=== PATIENT | female | born 2005 | race Caucasian/White ===

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

== ENCOUNTER 2023-09-10 22:03 | Emergency (ER) | payer OTHER, SELFPAY ==
--- NOTE | ~2023-09-10 | XR_ITS ---
Supine and upright views of the abdomen Clinical history: Foreign body Findings: Bowel gas pattern is nonspecific. No evidence for obstruction or free air. No abnormal mass lesion or calcification is seen. Linear density projecting over the left iliac wing on a single imag e is probably artifactual/external to the patient. Osseous structures are intact. Impression: Linear density projecting over the left iliac wing on a single image is likely artifactual/external t o the patient. No definite foreign body seen. Reviewed, dictated and finalized at location M. Impression: Linear density projecting over the left iliac wing on a single image is likely artifactual/external to the patient. No definite foreign body seen.
[2023-09-10 22:03] VITALS: BP 128/88; PULSE 84; RESP 20; TEMP 36.5; O2SAT 98
--- NOTE | 2023-09-10 22:09 | ED.SKABFB ---
HPI - Skin/Abscess/Foreign Bdy General Chief complaint: Skin/Abscess/Foreign Body Stated complaint: Insulin needle stuck in abdomen Time Seen by Provider: 09/10/23 22:08 Source: patient Mode of arrival: ambulatory Limitations: no limitations History of Present Illness HPI narrative: 18-year-old female with diabetes mellitus on insulin presents to the ED with -- insulin needle stuck to her anterior abdominal wall. She complains of pain. She used the 27 gauge needle which appears to have broken off. Onset (ago): minute(s) ( 30 minutes ago) Tetanus up to date: yes Related Data Home Medications Medication Instructions Recorded Confirmed cholecalciferol (vitamin D3) 25 10/27/22 10/27/22 mcg (1,000 unit) tablet insulin lispro 100 unit/mL subcut 10/27/22 subcutaneous pen (Humalog KwikPen (U-100) Insulin) levonorgestrel-ethinyl estradiol tablet 10/27/22 0.1 mg-20 mcg tablet (Lessina) azithromycin 500 mg tablet mg 12/27/22 Allergies Allergy/AdvReac Type Severity Reaction Status Date / Time Penicillins Allergy Unknown Verified 12/27/22 10:37 Review of Systems Review of Systems: All systems reviewed & are unremarkable except as noted in HPI and below Exam Narrative: vitals are stable Const: General: healthy appearing and no acute distress Nutritional Appearance: well nourished Orientation/consciousness: patient oriented x3 Limitations: no limitations HENMT: Head: normal to inspection Ears: external ears normal Face/Nose/Sinus: Normal external nose present Face and sinus: normal facial exam Mouth: Yes Normal oral and palatal mucosa present Throat: posterior oropharynx normal Eyes: Conjunctivae: conjunctivae normal Pupils: Equal, round and reactive pupils present EOM: EOMs intact bilaterally Direct Ophthalmoscopy: no photophobia Neck: Neck: normal visual inspection and no lymphadenopathy Chest: Chest palpation & inspection: normal inspection of the chest Resp: Effort & Inspection: normal respiratory effort Auscultation: clear to auscultation bilaterally Cardio: Rate: regular rate Rhythm: regular rhythm GI: GI Palp: Yes Soft to palpation Auscultation: normal bowel sounds Other: erythematous spot measuring 2 mm on the anterior abdominal wall. Unable to locate broken needle after making a 0.5 cm incision. X-ray failed to reveal a foreign body. : General: Yes no CVA tenderness Back/Spine/Pelvis: Back: no CVA tenderness Skin: General skin exam: normal color Rashes: no rashes Wounds: no wounds Other: Foreign body in anterior abdominal wall Neuro: General: patient oriented x3, moves all extremities, no meningeal signs, no focal motor deficits and CN's II-XI intact bilaterally Speech: normal speech Extrem: General: normal to inspection and no clubbing, cyanosis or edema Psych: Mental Status: mental status grossly normal Affect: normal affect Course Course Emergency Course: foreign body anterior abdominal wall unable to locate the foreign body after 0.5 cm incision Vital Signs Vital signs: Vital Signs Temperature 36.5 C 09/10/23 22:03 Pulse Rate 84 09/10/23 22:03 Respiratory Rate 20 09/10/23 22:03 Blood Pressure 128/88 09/10/23 22:03 Pulse Oximetry 98 09/10/23 22:03 Oxygen Delivery Room Air 09/10/23 22:03 Temperature 36.5 C 09/10/23 22:03 Pulse Rate 84 09/10/23 22:03 Respiratory Rate 20 09/10/23 22:03 Blood Pressure 128/88 09/10/23 22:03 Pulse Oximetry 98 09/10/23 22:03 Oxygen Delivery Room Air 09/10/23 22:03 Procedures Foreign Body Removal Foreign Body #1: Foreign Body Removal Date: 09/10/23 Foreign Body Removal Time: 22:42 Site: other ( anterior abdominal wall) Description of foreign body: needle ( 27 gauge needle in the anterior abdominal wall) Sedation/Analgesia: other ( 1% lidocaine infiltrated-- 2 mL used) Technique: incision made to facilitate sourav
[2023-09-10] MEDS: LIDOCAINE HCL 1% LOCAL INJ 10 ML VIAL 3 ML INFILTRATE (22:17)
[2023-09-10 23:10] VITALS: BP 126/75; PULSE 78; RESP 20; O2SAT 98
== END 2023-09-10 23:10 | disposition home or self-care (01) ==
PROVIDERS: Emergency Provider Internal Medicine Critical Care Medicine; PCP Family Medicine
DX: S31.149A Puncture wound of abdominal wall with foreign body, unspecified quadrant without penetration into peritoneal cavity, initial encounter (principal); W45.8XXA Other foreign body or object entering through skin, initial encounter
CPT/HCPCS: 10120; 74018; 99283

== ENCOUNTER 2024-09-19 19:16 | Emergency (ER) | payer OTHER, SELFPAY ==
--- NOTE | ~2024-09-19 | XR_ITS ---
EXAMINATION: XR chest 1V portable Exam Date/Time: 09/19/2024 21:10 CDT HISTORY: DIZZY Comparison: 09/30/2023. RESULT: Lines, tubes, and devices: None. Lungs and pleura: Exam limited by body habitus. Low volumes with mild crowding. No focal consolidatio n, pleural effusion, or pneumothorax. Cardiomediastinal silhouette: Stable. Other: No acute osseous or upper abdominal finding. IMPRESSION: No acute cardiopulmonary process. Reviewed, dictated and finalized at location K.
--- OUTSIDE RECORDS SUMMARY | 2024-09-19 19:19 | XMS_ITS | Encounter Summary ---
Author Organization [facility] Address [address] [place] [address] Care Team Providers Care Food Selector Name Role Phone Unknown, Provider Primary Care Provider Unavaila ble Reason for Visit * Reason Onset Date Comments MEDICATION REFILL 08/14/2013 Encounter Details Date Type Department Care Team (Late st Contact Info) Description 08/14/[address] 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
--- OUTSIDE RECORDS SUMMARY | 2024-09-19 19:19 | XMS_ITS | Encounter Summary ---
Author Organization [facility] Address [address] [facility] [place] [address] Care Team Providers Care Superintendent Track Name Role Phone Arron Lucio MD Primary Care Provider [phone]- [phone] Unknown, Provider Primary Care Provider Unavaila ble Unknown, Provider Primary Care Provider Unavaila ble Reason for Visit * Reason Onset Date Comments MEDICATION REFILL 07/04/2012 Encounter Details Date Type Department Care Team (Late st Contact Info) Description 07/04/2012 Refill [facility] Pediatrics - Endocrinology [address] [place] [address] Jaime Crespo, BENDER HELPER-SURVEY RESEARCH MANAGER [address] [place] [address] MEDICATION REFILL Social History Tobacco Use Types Packs/Day Years Used Date Smoking Tobacco: Passive Smo ke Exposure - Never Smoker Smokeless Tobacco: Never Alcohol Use Standard Drinks/Week Comments No 0 (1 standard drink = 0.6 oz pur e alcohol) Comments Unknown Sex and Gender Information Value Date Recorded Sex Assigned at Not on file Legal 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 I attempted to reach mom several times, fast busy signal with each attempt. documented in this encounter Plan of Treatment Not on file documented as of this encounter Visit Diagnoses Diagnosis Type I (juvenile type) diabetes mellitus without mention of complication, not stated as uncontrolled (HCC) Type I (juvenile type) diabetes mellitus without mention of complication, not stated as uncontrolled documented in this encounter Care Teams Superintendent Track Relationship Specialty Start Date End Date Arron Lucio MD [address] [place] [address] PCP - General 06/04/09 02/20/13 Unknown, Provider [address] [place] [address] PCP - General 02/21/13 06/26/13 Unknown, Provider [address] [place] [address] PCP - General 08/14/13 08/15/13 documented as of this encounter
--- OUTSIDE RECORDS SUMMARY | 2024-09-19 19:19 | XMS_ITS | Encounter Summary ---
Author Organization [facility] Address [address] [facility] [place] [address] Care Team Providers Care Pantomimist Name Role Phone Unavailable Primary Care Provider Unavailabl e Encounter Details Date Type Department Care Team (Late st Contact Info) Description 11/05/2021 Telephone [facility] Pediatrics - Diabetes [address] 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 Okay to put through referral as long asOhara is in agreement (due to age 16 years). I attempted to call mom to ask to speak to Nish or ask for her number. No answer. LMOM to call back next week. If mom (or Nish) return my call while out of office, please confirm WITH NISH that she would likethe referral placed. If so, okay to proceed with referral or route message for me to place referralon Tuesday when I am back in the office. * Telephone Encounter - Marco Urbina - 11/05/2021 12:06 PM CDT Mom called wishing for a referral to be put in for Nish to see a bariatric surgeon. Physician is Dr. Jaime Armando out of [facility]. Office number is [phone]. Fax number is [phone]. Will route to Dr. Espinosa documented in this encounter Plan of Treatment Not on file documented as of this encounter Visit Diagnoses Not on filedocumented in this encounter
--- OUTSIDE RECORDS SUMMARY | 2024-09-19 19:19 | XMS_ITS | Encounter Summary ---
Author Organization [facility] Address [address] [facility] [place] [address] Care Team Providers Care Artificial Pearl Maker Name Role Phone Arron Lucio MD Primary Care Provider [phone]- [phone] Unknown, Provider Primary Care Provider Unavaila ble Unknown, Provider Primary Care Provider Unavaila ble Reason for Visit * Reason Onset Date Comments Refill Request 02/03/2011 Needs humalog vi als, lantus (just in case), test strips, lancets, glucagon , ketone strips. She said she needs refills on everything. nivio [phone] Encounter Details Date Type Department Care Team (Late st Contact Info) Description 02/03/2011 Telephone [facility] Pediatrics - Endocrinology [address] [place] [address] Jaime Crespo, FOUNDRY WORKER GENERAL-AGRICULTURAL REAL ESTATE AGENT [address] [place] [id number] Refill Request (Needs humalog vials, lantus (just in case), test strips, lancets, glucagon , ketone strips. She said she needs refills on everything. 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
--- OUTSIDE RECORDS SUMMARY | 2024-09-19 19:19 | XMS_ITS | Encounter Summary ---
Author Organization [facility] Address [address] [place] [address] Care Team Providers Care Incinerator Plant Laborer Name Role Phone Arron Lucio MD Primary Care Provider [phone]- [phone] Unknown, Provider Primary Care Provider Unavaila ble Unknown, Provider Primary Care Provider Unavaila ble Reason for Visit * Reason Onset Date Comments Refill Request 06/27/2009 ketostrips, free style lite test strips #200, teest 5- 9x qd Encounter Details Date Type Department Care Team (Late st Contact Info) Description 06/27/2009 Telephone [facility] Pediatrics - Diabetes [address] [address] Rosalba Penaloza MD Refill Request (ketostrips, freestyle lite test strips #200, teest 5-9x qd) Social History Tobacco Use Types Packs/Day Years Used Date Smoking Tobacco: Never Assessed Comments Unknown Sex and Gender Information Value Date Recorded Sex Assigned at Not on file Legal Sex Female 5:44 AM ROSE GRADER Gender Identity Not on file Sexual Orientation Not on file documented as of this encounter Plan of Treatment Not on file documented as of this encounter Visit Diagnoses Not on filedocumented in this encounter Care Teams Incinerator Plant Laborer Relationship Specialty Start Date End Date Arron Lucio MD [address] [place] [id number] PCP - General 06/04/09 02/20/13 Unknown, Provider [address] [place] [address] PCP - General 02/21/13 06/26/13 Unknown, Provider [address] [place] [address] PCP - General 08/14/13 08/15/13 documented as of this encounter
--- OUTSIDE RECORDS SUMMARY | 2024-09-19 19:19 | XMS_ITS | Encounter Summary ---
Author Organization [facility] Address [address] [place] [address] Care Team Providers Care Warehouse Hand Name Role Phone Unavailable Primary Care Provider Unavailabl e Reason for Visit * Reason Onset Date Comments Blood Sugar Problem 11/26/2014 Encounter Details Date Type Department Care Team (Late st Contact Info) Description 11/26/2014 Telephone [facility] Pediatrics - Diabetes [address] [address] Kiana Villela, MEDICAL ARTIST-ROAD MAKER Retired Blood Sugar Problem Social History Tobacco Use Types Packs/Day Years Used Date Smoking Tobacco: Passive Smo ke Exposure - Never Smoker Smokeless Tobacco: Never Alcohol Use Standard Drinks/Week Comments No 0 (1 standard drink = 0.6 oz pur e alcohol) Comments No Sex and Gender Information Value Date Recorded Sex Assigned at Not on file Legal Sex Female 5:44 AM FISHER POT Gender Identity Not on file Sexual Orientation Not on file documented as of this encounter Miscellaneous Notes * Telephone Encounter - Ludwin Curran RN - 11/26/2014 8:54 AM CDT Diabetes Sick Call Patient: Nish Machado Date: 11/26/2014 Mom called board of education secretary line and I was given message at 0845. Current Blood Glucose: 509 when she woke up earlier (not sure what time). Current Ketone result: large Last insulin given: Humalog: Dose 15 units Humalog with an injection at 0845. Site was changed. Symptoms: nausea, no vomiting. Recent Illness: ear infection last week, on antibiotics, Plan: Less than or equal to 10% of total daily dose. Push sugar free fluid. Recheck blood glucose and urine ketones in two hours. Miscellaneous: Reviewed DKA prevention guidelines and scenarios that warrant an immediate call. ER POT documented in this encounter Plan of Treatment Not on file documented as of this encounter Visit Diagnoses Not on filedocumented in this encounter
--- OUTSIDE RECORDS SUMMARY | 2024-09-19 19:19 | XMS_ITS | Encounter Summary ---
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 No / Unsure 06/12/2020 1:52 PM CDT documented as of this encounter Functional Status * Over the past 2 weeks, how often have you been bothered by any of the following problems? Question Answer Date of Assessment Author Little interest or pleasure in doing things Several days 06/12/2020 2:02 PM CDT Marci Ness Feeling down, depressed, or hopeless More than half the days 06/12/2020 2:02 PM CDT Marci Ness Patient Health Questionnaire-2 Score 3 06/12/2020 2:02 PM CDT Marci Ness * Question Answer Date of Assessment Author Trouble falling or staying asleep, or sleeping too much Not at all 06/12/2020 2:02 PM CDT Marci Ness Feeling tired or having little energy Not at all 06/12/2020 2:02 PM CDT Marci Ness Poor appetite or overeating Not at all 06/12/2020 2:02 PM CDT Marci Ness Feeling bad about yourself - or that you are a failure or have let yourself or your family down More than half the days 06/12/2020 2:02 PM CDT Marci Ness Trouble concentrating on things, such as reading the newspaper or watching television Several days 06/12/2020 2:02 PM CDT Marci Ness Moving or speaking so slowly that other people could have noticed? Or the opposite - being so fidgety or restless that you have been moving around a lot more than usual. Not at all 06/12/2020 2:02 PM CDT Marci Ness Thoughts that you would be better off or hurting yourself in some way More than half the days 06/12/2020 2:02 PM CDT Marci Ness Patient Health Questionnaire-9 Score 8 06/12/2020 2:02 PM CDT Marci Ness documented as of this encounter Miscellaneous Notes * Telephone Encounter - Dinah Guy RN - 06/10/2020 2:23 PM CDT [place] approval for [place] [facility] [place] x 1 month. Per approval letter, for further authorization provide more updated progress note. documented in this encounter Plan of Treatment Not on file documented as of this encounter Visit Diagnoses Not on filedocumented in this encounter
--- OUTSIDE RECORDS SUMMARY | 2024-09-19 19:19 | XMS_ITS | Encounter Summary ---
Author Organization [facility] Address [address] [place] [address] Care Team Providers Care Machine Burrer Name Role Phone Unavailable Primary Care Provider Unavailabl e Reason for Visit * Reason Onset Date Comments MEDICATION REFILL 06/26/2015 Encounter Details Date Type Department Care Team (Late st Contact Info) Description 06/26/2015 Refill [facility] Pediatrics - Diabetes [id number] [place] [address] Jaime Crespo, CRUSHER LOADER OPERATOR-MANAGER OF CUSTOMER BILLING [address] [place] [address] MEDICATION REFILL Social History Tobacco Use Types Packs/Day Years Used Date Smoking Tobacco: Passive Smo ke Exposure - Never Smoker Smokeless Tobacco: Never Alcohol Use Standard Drinks/Week Comments No 0 (1 standard drink = 0.6 oz pur e alcohol) Comments No Sex and Gender Information Value Date Recorded Sex Assigned at Not on file 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 I spoke to the ER desk and askedthem to call inpatient pharmacy to bring down the ordered Lantus from yesterday for the [facility] for one vial of Lantus. To call back if further problems. documented in this encounter Plan of Treatment Not on file documented as of this encounter Visit Diagnoses Not on filedocumented in this encounter
--- OUTSIDE RECORDS SUMMARY | 2024-09-19 19:19 | XMS_ITS | Encounter Summary ---
Author Organization [facility] Address [address] [place] [address] Care Team Providers Care Boot And Saddle Repair Person Name Role Phone Unavailable Primary Care Provider Unavailabl e Encounter Details Date Type Department Care Team (Late st Contact Info) Description 04/20/2022 Telephone 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 Zarina Gonzalez ([facility]) that Nish was seen today (04/20/22) and started Wegovy (see phone conversation dated yesterday). She provided Nish with my recommendations to monitor glucose closely. documented in this encounter Plan of Treatment Not on file documented as of this encounter Visit Diagnoses Not on filedocumented in this encounter
--- OUTSIDE RECORDS SUMMARY | 2024-09-19 19:19 | XMS_ITS | Clinical Summary ---
Author Organization [facility] Address [address] [place] [address] Care Team Providers Care Manager Sign Name Role Phone Mo Vora MD Primary Care Provi alida Allergies Active Allergy Reactions Criticality Noted Date Comments Penicillins Nausea And Vomiting, Other (See comments) Low 01/12/2021 Medications glucagon 1 mg kit Inject 1 mL (1 mg total) into the muscle as instructed 08/31/19 18 Active acetone, urine, test strip Use to test every day as directed. Check if blood sugar is elevated or patient is ill. 06/14/19 24 Active Baqsimi 3 mg/actuation spray,non-aerosolI ndications:patient with diabetes mellitus at risk of hypoglycemia Administer 1 spray into one nostril as needed (use for severe hypoglycemia requiring the assistance of another.) E10.65 2 each 10/24/19 24 Active blood-glucose meter kit 1 Device continuously 1 kit 10/24/19 24 Active blood glucose diagnostic (glucose blood) strip Check blood sugar four times a day or as directed 100 each 10/24/19 24 Active pen needle, diabetic 32 gauge x 5/32 needle Use to inject insulin up to 4times/day. 150 each 10/24/19 24 Active metoclopramide (REGLAN) 5 mg tablet 10/18/19 24 Active magnesium oxide (MAG-OX) 400 mg (241.3 mg elemental magnesium) tablet Take 1 tablet (400 mg total) by mouth every morning 10/03/19 24 Active norgestimate-ethin yl estradioL (Tri-Sprintec, 28,) 0.18/0.215/0.25 mg-35 mcg (28) per tabletIndications: Encounter for initial prescription of contraceptive pills Take 1 tablet by mouth daily 360 tablet 12/29/19 24 025 Active blood-glucose sensor (too.mecom G7 Sensor) deviceIndications: Type 1 diabetes mellitus with hyperglycemia (HCC) Will use 3 sensors per month to check blood sugar continuously. 3 each 11 04/06/19 25 Active HumaLOG 100 unit/mL pen for injectionIndicatio ns:Type 1 diabetes mellitus with hyperglycemia (HCC) Max daily dose 200 units. Use insulin to carb ratio of 4 and following sliding scale: If glucose <150: add 0 units If glucose 151-200: add 4 units If glucose 201-250: add 8 units If glucose 251-300: add 12 units If glucose 301-350: add 16 units If glucose >350: add 20 units 60 mL 6 04/06/19 25 Active OneTouch Delica Plus Lancet 33 gauge misc USE TO CHECK BLOOD SUGAR FOUR TIMES A DAY NEEDED 04/13/19 25 Active rosuvastatin (CRESTOR) 10 mg tabletIndications: Dyslipidemia TAKE 1 TABLET(10 MG) BY MOUTH DAILY 90 tablet 3 05/15/19 25 Active insulin glargine (LANTUS) 100 unit/mL (3 mL) pen for injection INJECT 75 UNITS UNDER THE SKIN TWICE DAILY 60 mL 3 08/02/19 25 Active ondansetron ODT (ZOFRAN-ODT) 4 mg disintegrating tablet Take 1 tablet (4 mg total) by mouth every 8 (eight) hours as needed 07/04/19 25 Active Trulicity 0.75 mg/0.5 mL pen injector 08/02/[address] (VOLTAREN) 75 mg EC tabletIndications: Chronic pain of both knees Take 1 tablet (75 mg total) by mouth daily 90 tablet 08/03/19 25 025 Active FLUoxetine (PROzac) 20 mg capsuleIndications :Mild episode of recurrent major depressive disorder Take 1 capsule (20 mg total) by mouth daily 30 capsule 1 08/03/19 25 025 Active Active Problems Problem Noted Date Diagnosed Date Routine adult health maintenance 06/27/2024 Assessment & Plan (06/27/2024 3:33 PM CDT): She is up-to-date on age-appropriate routine health maintenance after we get the tetanus shot done today. All questions answered. Mild episode of recurrent major depressive disor alida 06/27/2024 Assessment & Plan (08/02/2024 3:35 PM CDT): Orders: FLUoxetine (PROzac) 20 mg capsule; Take 1 capsule (20 mg total) by mouth daily Assessment & Plan (06/27/2024 3:33 PM CDT): Orders: FLUoxetine (PROzac) 10 mg tablet/capsule; Take 1 tablet/capsule (10 mg total) by mouth daily Need for tetanus booster 06/27/2024 Assessment & Plan (06/27/2024 3:33 PM CDT): Orders: Tdap vaccine greater than or equal to 7yo IM Attention deficit hyperactiv ity disorder (ADHD), predominantly inattentive type 12/29/2023 Encounter for initial prescription of contracept jamar pills 12/29/2023 Hypertriglyceridemia 10/24/2023 Chronic pain of both knees 10/24/2023 Assessment & Plan (08/02/2024 3:35 PM CDT): Orders: diclofenac DR (VOLTAREN) 75 mg EC tablet; Take 1 tablet (75 mg total) by mouth daily Bilateral low back pain without sciatica 024 Family history of rheumatoid arthritis Numbness and tingling of both feet 08/08/2023 Type 1 diabetes mellitus with hyperglycemia 07/08 Assessment & Plan (06/27/2024 3:33 PM CDT): Diabetes mellitus with features of insulin resis tance 07/26/2023 Diabetic ketoacidosis withou t coma associated with type 1 diabetes mellitus 05/10/2023 Overview (10/24/2023): Last Assessment & Plan: Nish Machado is a 17 year old year old female with known T1DM who presented to [facility] ED for complaints of nausea/vomiting, ARANGO, tiredness, and fruity breath, consistent with DKA. Initial labs showed POC glucose 216/pH 7.16/HCO3 8. BMP with Na 134, K 4.5, HCO3 8, Gluc 229, AG 18. She was started on an insulin drip and 2 bag system per protocol.Since her labs showed that her anion gap has closed and his bicarb is reassuring with a clinically reassuring exam, she is appropriate for transitioning back to her pump. Plan: - Resume insulin pump ( 8.9 units/hour (12am)- 7.5 units/hour (4am)- 8.9 units/hour (7am)), carb ratio of 1:2.5 g, sensitivity 1 unit per 15 mg/dL) - Fluids dc'd in view of negative ketones - begin carb counting diet - qAC,qHS and 0200 blood sugars - urine ketones qvoid until negative - Nutrition consult - Diabetes education consult, appreciate recs - Strict I/O - OC - VS q8hr Heartburn 06/14/2022 Ketonuria 04/30/2017 Mixed hyperlipidemia 11/30/2016 Morbid obesity with BMI of 45.0-49.9, adult 11/07 Assessment & Plan (06/27/2024 3:33 PM CDT): Assessment & Plan (09/21/2022 10:55 AM CDT): We have encouraged her to get her mind where it needs to be to proceed with going through with this process. She is going to take a step back and focus on her life right now. She will then call us back when she is ready to proceed. Assessment & Plan (07/13/2022 10:12 AM CDT): Unfortunately there has been some issues with her obtaining psych clearance. When she was set for her visit they had a hard time finding the facility. They called the office to try and get the address multiple times and no one answered. Because of this this made the mother quite upset. unfortunately she cursed out the office. They now are unwilling to see her. We are going to have to find another psych provider. We have cautioned the family that further outbursts like this will cause dismissal from the program. I understand that she is upset but they are other ways of dealing with the situation. If she just would have called our office we clearly would have been able to give them the address. They are now going to find a psychiatrist on their own that will be willing to fill out a clearance for her bariatric surgery. We will see her back in August. 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 She understands the fluctuation she is going to have in the short term after surgery with the weight loss and inability to take in what she is currently doing from an oral standpoint. We have also discussed that type 1 diabetes and type 2 are different entities and that the surgery will not eliminate her long-term need for insulin it will just decrease the amounts. She is in understanding. We will see her back next month for her final visit. Assessment & Plan (03/11/2022 10:38 AM STONE CLEANER): We have had talks with the patient about trying to find a healthy outlet when she has emotional times in her life. We have discussed trying to find a friend or someone she can just talk things through instead of trying to food we have been trying to find some hobby to take her mind off of other issues. In addition to trying this she is going to try and increase her exercise activity to help with weight loss coming into this next month. We will see her back then. Assessment & Plan (02/11/2022 11:06 AM STONE CLEANER): I will make a referral to 1 of the obesity medicine doctors to see if they may be offer her something to help curb her appetite. She will continue to work with the dietitian, therapist and psych. We will see her back next month to reassess her progress. Assessment & Plan (01/07/2022 9:33 AM STONE CLEANER): Given their past success the patient would be a good candidate for weight loss surgery. We have gone over options such as the bypass and sleeve gastrectomy. We have also discussed risks and benefits such as blood clots, staple line leak as well as new or worsening reflux symptoms. They are in understanding. During this time will have them seen by the dietitian and psych. As we get closer to the time of surgery we will set him up for an EGD to look for hiatal hernia, H pylori or other gastric pathology. We will see them back in 4 weeks. They are in understanding of the plan. We have gone over small frequent meals shooting for a goal calorie intake of around 1600 spread throughout 4-5 meals. We have discussed not eating late at night. We have discussed cardiovascular exercise. Greater than 15 minutes was spent in counseling the patient on diet and exercise with regards to her morbid obesity. Type 1 diabetes mellitus 05/19/2016 Assessment & Plan (01/07/2022 9:32 AM STONE CLEANER): Continue glycemic control Resolved Problems Problem Noted Date Diagnosed Date Resolved Date Flu-like symptoms 04/17/2024 06/27/2024 Acute URI 04/17/2024 06/27/2024 Rash 04/17/2024 06/27/2024 Vomiting and diarrhea 04/30/20172023 Gastroenteritis, acute 04/30/201712/28 Viral enteritis 01/08/2010 12/29/2023 Overview (10/24/2023): Monitor fluid balance. Will start bland diet this am and ADAT. Encounters Date Type Department Care Team Description 08/02/2024 3:30 PM CDT Office Visit [facility] Primary Care at [address] [phone] Mo Vora MD Mild episode of recurrent major depressive disorder (Primary Dx); Chronic pain of both knees 07/03/2024 Nurse Triage [facility] Primary Care at [address] [phone] Mo Vora MD 06/28/2024 Results Follow-Up [facility] Primary Care at [address] [phone] Mo Vora MD Lipid panel 06/27/2024 3:30 PM CDT Lab [facility] - Outpatient Center at [address] [place] [address] Mixed hyperlipidemia 06/27/2024 3:00 PM CDT Office Visit [facility] at [address] [place] [phone] Padmini Jin, Type 1 diabetes mellitus with hyperglycemia (HCC) (Primary Dx) 06/27/2024 2:30 PM CDT Office Visit [facility] Primary Care at [address] [place] [phone] Mo Vora MD Routine adult health maintenance (Primary Dx); Mild episode of recurrent major depressive disorder; Morbid obesity with BMI of 45.0-49.9, adult (HCC); Type 1 diabetes mellitus with hyperglycemia (HCC); Need for tetanus booster from Last 3 Months Immunizations Immunization Administration Dates Next Due DTaP 08/26/2008,01/18/2005,2003 DTaP / Hep B / IPV 01/27/2004,2003 HPV9 06/01/2016,12/31/2015,10/30/2015 Hep A, Pediatric 08/22/2014,09/24/2011 Hep B, Unspecified 2003 HiB 01/27/2004,2003,2003 IPV 08/26/2008,2003 Influenza, Quadrivalent, Connie l Culture-based MDCK, Preservative Free, Antibiotic Free, Intramuscular 10/16/2022 Influenza, Quadrivalent, Spl it, Preservative Free, Intramuscular 01/02/2019,11/23/2016,10/30/2015,11/19 Influenza, Trivalent, Cell Culture-based MDCK, Preservative Free, Antibiotic Free, Intramuscular 10/16/2022 Influenza, Trivalent, Preser vative Free, Intramuscular 11/17/2010 Influenza, Unspecified 11/17/2023(Deferr ed: Patient Refused),11/17/2023(Deferred: Patient Refused),12/04/2022(Deferred: Patient Refused),12/02/2022(Deferred: Patient Refused),11/23/2022(Deferred: Patient Refused),10/16/2022,02/21/2013, 012,01/18/2005 MMR 11/29/2008,10/16/2004 Meningococcal B, OMV (Bexsero) 09/04/2020 Meningococcal Conjugate (Menveo) 08/22/2014 Meningococcal MCV4P (Menactra) 09/04/2020 Moderna Sars-cov-2 Bivalent Vaccine 50 Mcg/0.5 mL (12+ YRS)-Blue/Gonzalez 10/16/2022 Pneumococcal Conjugate 7-Valent 01/19/20 05,07/28/2004,04/20/2004,09/26 Tdap 06/27/2024,08/22/2014 Varicella 09/24/2011,10/16/2004 Surgical History Surgery Date Site/Laterality Comments TONSILECTOMY, ADENOIDECTOMY, BILATERAL MYRINGOTOMY AND TUBES Medical History Medical History Date Comments Diabetes mellitus (HCC) Diabetes mellitus type I (HCC) Cellulitis right thigh Family History Medical History Relation Name Comments Arthritis Mother Diabetes Sister type 1 diabetes Relation Name Status Comments Father Alive Mother Alive Sister Alive Social History Tobacco Use Types Packs/Day Years Used Date Smoking Tobacco: Every Day Vaping Smokeless Tobacco: Never Tobacco Cessation:Ready to Q uit: Not Asked; Counseling Given: Not Answered AUDIT-C Answer Date Recorded Q1: How often do you have a drink containing alcohol? Never 06/29/2022 Q2: How many drinks containi ng alcohol do you have on a typical day when you are drinking? Patient does not drink Q3: How often do you have si x or more drinks on one occasion? Never 06/29/2022 PHQ-2 Answer Date Recorded PHQ-2 Total Score (If total score is 3 or more points, staff should administer the PHQ-9) 0 08/02/2024 PHQ-9 Answer Date Recorded PHQ-9 Total Score 0 08/02/2024 Personal Safety Answer Date Recorded Have you ever been in or are you currently in a harmful physical or emotional relationship or is someone making you feel afraid or unsafe? 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 Gender Identity Not on file Sexual Orientation Not on file Obstetrics History Last Filed Vital Signs Vital Sign Reading Time Taken Comments Blood Pressure 134/70 08/02/2024 2:51 PM CDT Pulse 110 08/02/2024 2:51 PM CDT Temperature 36.8 C (98.2 F) 06/27/2024 2:39 PM CDT Respiratory Rate 15 06/29/2022 3:33 PM CDT Oxygen Saturation 98% 08/02/2024 2:51 PM CDT Inhaled Oxygen Concentration - - Weight 115.7 kg (255 lb) 08/02/2024 2:51 PM CDT Height 160 cm (5' 2.99) 08/02/2024 2:51 PM CDT Body Mass Index 45.18 08/02/2024 2:51 PM CDT Plan of Treatment Health Maintenance Due Date Last Done Comments Cervical Cancer Screening 2003 Hepatitis C Screening 2003 Pneumococcal vaccine <65 (1 of 1 - PPSV23, PCV20, or PCV21) 07/15/2009 01/18/2005, 07/28/2004, 04/20/2004, Additional history exists Meningococcal B Vaccine (2 o f 2 - Bexsero SCDM 2-dose series) 03/07/2021 09/04/2020 Covid-19 Vaccine ( - 2023-2 5 season) 2023 10/16/2022, 10/16/2022, 01/27/2021 Influenza Vaccine (#1) 2024 , 10/16/2022, 10/16/2022, Additional history exists Albumin Creatinine Ratio, Urine 10/23/2024 10/24/2023, 10/24/2023, 10/24/2023, Additional history exists TSH Level 10/23/2024 10/24/2023, 0702/2023, 01/06/2023, Additional history exists eGFR 12/08/2024 12/09/2023, 02/2023, 10/24/2023, Additional history exists Dilated Eye Exam 12/28/2024 12/29/2023 Foot Exam 12/28/2024 12/29/2023 Hemoglobin A1C 12/28/2024 06/27/2024, 03/11, 10/24/2023, Additional history exists Lipid Panel 06/27/2025 06/27/2024, 10/08, 10/24/2023, Additional history exists Regular Well Visit/Exam 18-64 06/27/2025 06/27/2024 Depression Screening 08/02/2025 08/02/2024, 08/02/2024, 06/27/2024, Additional history exists DTaP/Tdap/Td Vaccine (8 - Td or Tdap) 06/27/2034 06/27/2024, 08/22/2014, 08/26/2008, Additional history exists Hepatitis B Screening Completed 01/27/2004 , 2003, 2003 Varicella Vaccines Completed 09/24/2011, 10/16/2004 HPV Vaccines Completed 06/01/2016, 12/09, 10/30/2015 Meningococcal Vaccine Completed 09/04/2020, 015 Procedures Procedure Name Priority Date/Time Associated Diagnosis Comments LIPID PANEL Routine 06/27/2024 3:29 PM CDT Mixed hyperlipidemia POCT HEMOGLOBIN A1C Routine 06/27/2024 3 :23 PM CDT Type 1 diabetes mellitus with hyperglycemia (HCC) RETINAVUE SCANNER - OU - BOTH EYES Routine 12/29/2023 Type 1 diabetes mellitus without complication (HCC) COMPREHENSIVE METABOLIC PANEL Routine 12/09/2023 ALBUMIN CREATININE RATIO, URINE Routine 10/24/2023 11:15 AM CDT Type 1 diabetes mellitus with hyperglycemia (HCC) TSH Routine 10/24/2023 11:15 AM CDT Type 1 diabetes mellitus with hyperglycemia (HCC) from Last 3 Months or Most Recently Relevant to Health Maintenance Results * (ABNORMAL) Lipid panel (06/27/2024 3:29 PM CDT) Cholesterol 175 30 - 199 mg/dL Comment: Interpretive Data Ages < or = 19 years Acceptable: <170 mg/dL Borderline high: 170-199 mg/dL High: >or= 200 mg/dL Ages > or = 20 years Desirable: <200 mg/dL Borderline high: 200-239 mg/dL High: >or= 240 mg/dL Literature References: 1. Expert Panel on Integrated Guidelines for Cardiovascular Health and Risk Reduction in Children and Adolescents. Pediatrics 2011;128:S213 2. NCEP Expert Panel. Circulation 2004;110:227 Current Interpretive Data was last revised on 2017. Testing performed by: [facility], [address] [place] [address]., [id number] Triglycerides 238(H) <=149 mg/dL [place] Comment: Interpretive Data Ages < or = 9 years Acceptable: <75 mg/dL Borderline high: 75-99 mg/dL High: >or= 100 mg/dL Ages 10 to 20 years Acceptable: <90 mg/dL Borderline high: 90-129 mg/dL High: >or= 130 mg/dL Ages > or = 20 years Desirable: <150 mg/dL Borderline high: 150-199 mg/dL High: 200-499 mg/dL Very high: >or= 499 mg/dL Literature References: 1. Expert Panel on Integrated Guidelines for Cardiovascular Health and Risk Reduction in Children and Adolescents. Pediatrics 2011;128:S213 2. NCEP Expert Panel. Circulation 2004;110:227 Current Interpretive Data was last revised on 2017. Testing performed by: [address] [address] HDL 28(L) >=40 mg/dL [facility] Comment: Interpretive Data Ages < or = 19 years Acceptable: >45 mg/dL Borderline low: 40-45 mg/dL Low: <40 mg/dL Ages > or = 20 years Desirable: >or= 60 mg/dL Low: <40 mg/dL Literature References: 1. Expert Panel on Integrated Guidelines for Cardiovascular Health and Risk Reduction in Children and Adolescents. Pediatrics 2011;128:S213 2. NCEP Expert Panel. Circulation 2004;110:227 Current Interpretive Data was last revised on 2017. Testing performed by: [address] [address] LDL, calculated 106 <=129 mg/dL [facility] Comment: Interpretive Data Ages < or = 19 years Acceptable: <110 mg/dL Borderline high: 110-129 mg/dL High: >or= 130 mg/dL Ages > or = 20 years Optimal: <100 mg/dL Near optimal: 100-129 mg/dL Borderline high: 130-159 mg/dL High: >160 mg/dL Calculated using the Alfredo LDL-C estimating equation. This equation was implemented on 2023. Prior to this date LDL-C was estimated using the Friedewald equation. Literature References: 1. Expert Panel on Integrated Guidelines for Cardiovascular Health and Risk Reduction in Children and Adolescents. Pediatrics 2011;128:S213 2. NCEP Expert Panel. Circulation 2004;110:227 3. Alfredo M et al. KAIDEN Cardiol. 2020 June 07;5(5):540-548. doi: 10.1001/jamacardio.2020.0013 Current Interpretive Data was last revised on 2023. Testing performed by: [address] [address] Non-HDL Cholesterol 147 mg/dL [facility] Comment: Interpretive Data Ages < or = 19 years Acceptable: <120 mg/dL Borderline high: 120-144 mg/dL High: >145 mg/dL Ages > or = 20 years When triglycerides are >200 mg/dL, Non-HDL cholesterol is a secondary target of therapy with treatment goals that are 30 mg/dL greater than the LDL cholesterol target. Literature References: 1. Expert Panel on Integrated Guidelines for Cardiovascular Health and Risk Reduction in Children and Adolescents. Pediatrics 2011;128:S213 2. NCEP Expert Panel. Circulation 2004;110:227 Current Interpretive Data was last revised on 2017. Testing performed by: [address] [address] Chol/HDL ratio 6 [facility] Comment:Testing performed by : [address] [address] Blood 06/27/2024 3:29 PM CDT 06/27/2024 8:03 PM CDT us Mo Vora MD LAB BLOOD ORDERABLE S Final Result [facility] [address] [address] Department [place] [address] * (ABNORMAL) POCT hemoglobin A1c (06/27/2024 3:23 PM CDT) [facility] Hemoglobin A1C, POC 7.4(A) 4.0 - 5.6 % Blood 06/27/2024 3:23 PM CDT Padmini Jin DO POINT OF CARE TEST ORDERABL ES Final Result * RetinaVue Scanner - OU - Both Eyes (12/29/2023) Anatomical Region Laterality Modality Head Fundus Photograp hy 12/29/2023 Padmini Jin DO OPHTH PHOTOGRAPHY Final Res ult * Comprehensive metabolic panel (12/09/2023) [facility] SCRIBED Sodium 136 - - - mmol/L EXTERNAL LAB SCRIBED Potassium 3.9 - - - mmol/L EXTERNAL LAB SCRIBED Chloride 103 - - - mmol/L EXTERNAL LAB SCRIBED Carbon Dioxide 22 - - - mmol/L EXTERNAL LAB SCRIBED Anion Gap 14.9 - - - mmol/L EXTERNAL LAB SCRIBED Urea Nitrogen (BUN) 7 - - - mg/dl EXTERNAL LAB SCRIBED Creatinine 0.96 - - - mg/dl EXTERNAL LAB SCRIBED Glucose 382 - - - mg/dl EXTERNAL LAB SCRIBED Calcium 9.5 - - - mg/dl EXTERNAL LAB SCRIBED Bilirubin 0.2 - - - mg/dl EXTERNAL LAB SCRIBED Plasma Protein 7.6 - - - g/dl EXTERNAL LAB SCRIBED Albumin 4.2 - - - g/dl EXTERNAL LAB SCRIBED Alkaline Phosphatase 117 - - - Units/L EXTERNAL LAB SCRIBED Alanine Transaminase (ALT) 21 - - - Units/L EXTERNAL LAB SCRIBED Aspartate Transaminase (AST) 13 - - - Units/L EXTERNAL LAB SCRIBED eGFR in >60 - - - EXTERNAL LAB SCRIBED eGFR in NonAfrican Burmese >60 - - - EXTERNAL LAB Blood 12/09/2023 Shashi Provider LAB BLOOD ORDERABLES Aaliyah l Result Performing Organization Address City/[facility] Co de Phone Number EXTERNAL LAB * Albumin Creatinine Ratio, Urine (10/24/2023 11:15 AM CDT) Albumin Ur 14.0 mg/L Comment: Interpretive Data No reference range established. Current interpretive data was last revised 2018. Creatinine Ur 103.1 mg/dL [facility] Comment: Interpretive Data No reference range established. Current interpretive data was last revised 2018. Albumin Creatinine Ratio, Ur 14 1 - 29 mg/g [facility] Urine 10/24/2023 11:1 5 AM CDT 10/24/2023 7:20 PM CDT Mo Vora MD LAB URINE ORDERABLE S Final Result Performing Organization Address [facility] de Phone Number [facility] [address] [address] Department [place] [address] * TSH (10/24/2023 11:15 AM CDT) Thyroid Stimulating Hormone 1.16 0.30 - 4.20 mcIUnit/mL Blood 10/24/2023 11:1 5 AM CDT 10/24/2023 7:20 PM CDT Mo Vora MD LAB BLOOD ORDERABLE S Final Result Performing Organization Address [facility] [place] Number [place] [address] [address] Department [place] [address] from Last 3 Months or Most Recently Relevant to Health Maintenance Insurance [facility] Advance Directives For more information, please contact: [phone] * Full Code (Latest Code Status on File) Date Activated Date Inactivated Comments 06/29/2022 12:03 PM 06/29/2022 7:40 PM * Full Code Date Activated Date Inactivated Comments 06/29/2022 12:03 PM 06/29/2022 12:03 PM Care Teams Manager Sign Relationship Specialty Start Date End Date Mo Vora MD [address] [place] [address] PCP - General Family Practice 09/21/23
--- OUTSIDE RECORDS SUMMARY | 2024-09-19 19:19 | XMS_ITS | Encounter Summary ---
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 documented in this encounter Plan of Treatment Not on file documented as of this encounter Visit Diagnoses Not on filedocumented in this encounter
--- OUTSIDE RECORDS SUMMARY | 2024-09-19 19:19 | XMS_ITS | Encounter Summary ---
Author Organization [facility] Address [address] [facility] [place] [address] Care Team Providers Care Community Health Nursing Director Name Role Phone Unavailable Primary Care Provider Unavailabl e Reason for Visit * Reason Onset Date Comments Parent Return Call 01/15/2020 Encounter Details Date Type Department Care Team (Late st Contact Info) Description 01/15/2020 Telephone [facility] Pediatrics - Diabetes Mgmt [address] [place] [address]. [place] [address] Radha Espinosa, [address] [address] Parent Return Call Social History Tobacco Use Types Packs/Day Years Used Date Smoking Tobacco: Passive Smo ke Exposure - Never Smoker Smokeless Tobacco: Never Alcohol Use Standard Drinks/Week Comments No 0 (1 standard drink = 0.6 oz pur e alcohol) PHQ-2 Answer Date Recorded PHQ-2 Score 1 04/17/2019 Comments No Sex and Gender Information Value Date Recorded Sex Assigned at Not on file Legal Sex Female 5:44 AM BUTTON PUNCHER Gender Identity Not on file Sexual Orientation Not on file COVID-19 Exposure Response Date Recorded In the last month, have you been in contact with someone who was confirmed or suspected to have Coronavirus / COVID-19? No / Unsure 12/18/2019 11:04 AM BUTTON PUNCHER documented as of this encounter Miscellaneous Notes * Telephone Encounter - Eli Steven RN - 01/15/2020 2:30 PM CST [phone]. Mother called stating she spoke with Emily Gayle and was told they were waiting oncertificate of medical necessity for pump supplies. Had discussed having her call Emily and ask to have certificate of medical necessities refaxed. Call dropped mid call so unable to confirm. I called Emily myself and learned certificate of medical necessity was faxed to Dr. Espinosa's former practice. They are willing to fax to office. Mother also request refills on Humalog. Called dropped before I could ask that they make appointment. When attempted to call back,mother could not hear me talking and asked that I text her. Unfortunately not possible to test but attempted to call her again and rings and no answer. Was able to reach mother to update on status with Emily. Will fax as soon as completed. Mother states in need of Humalog insulin for pump. Mother stated Admelog cannot be used with control IQ. Explained Humalog or Admelog are both lispro insulin and do not have a problem in Tandem pump.Reviewed Apidra cannot be used in a Tandem pump. She requested prescription specifically for Humalog. Will send to Dr. Espinosa to approve. ON PUNCHER documented in this encounter Plan of Treatment Not on file documented as of this encounter Visit Diagnoses Not on filedocumented in this encounter
--- OUTSIDE RECORDS SUMMARY | 2024-09-19 19:19 | XMS_ITS | Encounter Summary ---
Author Organization [facility] Address [address] [facility] [place] [address] Care Team Providers Care Fish Pitcher Name Role Phone Arron Lucio MD Primary Care Provider [phone] Unknown, Provider Primary Care Provider Unavaila ble Unknown, Provider Primary Care Provider Unavaila ble Reason for Visit * Reason Onset Date Comments Refill Request 02/17/2011 Mother needs sup plies from [employer] for the pump. She also needs Humalog vials from [employer] [phone]. Encounter Details Date Type Department Care Team (Late st Contact Info) Description 02/17/2011 Telephone [facility] Pediatrics - Endocrinology [address] [facility] [place] [address] Rosalba Penaloza MD Refill Request (Mother needs supplies from [employer] for the pump. She also needs Humalog vials from [employer] [phone].) Social History Tobacco Use Types Packs/Day Years Used Date Smoking Tobacco: Passive Smo ke Exposure - Never Smoker Smokeless Tobacco: Never Alcohol Use Standard Drinks/Week Comments No 0 (1 standard drink = 0.6 oz pur e alcohol) Comments Unknown Sex and Gender Information Value Date Recorded Sex Assigned at Not on file Legal Sex Female 5:44 AM PROVER Gender Identity Not on file Sexual Orientation Not on file documented as of this encounter Miscellaneous Notes * Telephone Encounter - Goldie Montgomery RN - 02/17/2011 2:49 PM CST I attempted to call Nish's mom regarding [employer] pump supplies. There was no answer. I left a message stating the order was faxed to [employer] on 02/15/11 at 1325. I instructed mom to call [employer] to verify the received the fax and if they did not to notify our office. I informed mom [facility] documented in this encounter Plan of Treatment Not on file documented as of this encounter Visit Diagnoses Not on filedocumented in this encounter Care Teams Fish Pitcher Relationship Specialty Start Date End Date Arron Lucio MD [address] [place] [address] PCP - General 06/04/09 02/20/13 Unknown, Provider [address] [place] [address] PCP - General 02/21/13 06/26/13 Unknown, Provider [address] [place] [address] PCP - General 08/14/13 08/15/13 documented as of this encounter
--- OUTSIDE RECORDS SUMMARY | 2024-09-19 19:19 | XMS_ITS | Encounter Summary ---
Author Organization [facility] Address [address] [facility] [place] [address] Care Team Providers Care Tube Closing Machine Operator Name Role Phone Unavailable Primary Care Provider Unavailabl e Reason for Visit * Reason Onset Date Comments MEDICATION REFILL 06/19/2015 Encounter Details Date Type Department Care Team (Late st Contact Info) Description 06/19/[address] [facility] Pediatrics - Diabetes [address] [place] [address] Jaime Crespo, HEALTHCARE MANAGEMENT CONSULTANT-ADVERTISING MATERIAL DISTRIBUTOR [address] [place] [address] MEDICATION REFILL Social History Tobacco Use Types Packs/Day Years Used Date Smoking Tobacco: Passive Smo ke Exposure - Never Smoker Smokeless Tobacco: Never Alcohol Use Standard Drinks/Week Comments No 0 (1 standard drink = 0.6 oz pur e alcohol) Comments No Sex and Gender Information Value Date Recorded Sex Assigned at Not on file Legal Sex Female 5:44 AM FUR DRY CLEANER Gender Identity Not on file Sexual Orientation Not on file documented as of this encounter Plan of Treatment Not on file documented as of this encounter Visit Diagnoses Not on filedocumented in this encounter
--- OUTSIDE RECORDS SUMMARY | 2024-09-19 19:19 | XMS_ITS | Encounter Summary ---
Author Organization [facility] Address [address] [place] [address] Care Team Providers Care Patient Financial Coordinator Name Role Phone Unavailable Primary Care Provider Unavailabl e Encounter Details Date Type Department Care Team (Late st Contact Info) Description 09/27/2018 Telephone [facility] Pediatrics - Diabetes [id number] [place] [address] Jaime Crespo, NISSA-PIN WORKER [address] [place] [address] Social History Tobacco Use Types Packs/Day Years Used Date Smoking Tobacco: Passive Smo ke Exposure - Never Smoker Smokeless Tobacco: Never Alcohol Use Standard Drinks/Week Comments No 0 (1 standard drink = 0.6 oz pur e alcohol) Comments No Sex and Gender Information Value Date Recorded Sex Assigned at Not on file Legal Sex Female 5:44 AM TOASTER OPERATOR Gender Identity Not on file Sexual Orientation Not on file documented as of this encounter Miscellaneous Notes * Telephone Encounter - Renata Boateng RN - 03/21/2019 2:16 PM TOASTER OPERATOR Called and checked on status of PA. Pharmacist at [facility] stated all went through insurance. Called family and updated TER OPERATOR * Telephone Encounter - Renata Boateng RN - 03/19/2019 1:37 PM TOASTER OPERATOR Mother called office to alert that she needed PAs on humalog, lantus and Dexcom. Called [facility] to troubleshoot. Lantus is ready for brain picker. Humalog and Dexcom required PAs. Verbal PA completed over the phone with [employer] specialist. Marked urgent. He stated that max time for PA decision would be 24 hours. He faxed specialty form to office for Dexcom. Will fill out and return fax today. TER OPERATOR * Telephone Encounter - Renata Boateng RN - 10/03/2018 2:18 PM CDT Received PA approval for dexcom director community organization, transmitter and sensors from [facility] [employer]. documented in this encounter Plan of Treatment Not on file documented as of this encounter Visit Diagnoses Not on filedocumented in this encounter
--- OUTSIDE RECORDS SUMMARY | 2024-09-19 19:19 | XMS_ITS | Encounter Summary ---
Author Organization [facility] Address [address] [facility] [place] [address] Care Team Providers Care Porter Sample Case Name Role Phone Unavailable Primary Care Provider Unavailabl e Encounter Details Date Type Department Care Team (Late st Contact Info) Description 09/24/2019 Telephone [facility] Pediatrics - Diabetes [id number] [place] [address] Jaime Crespo, NISSA-DECORATING INSPECTOR [address] [place] [address] Social History Tobacco Use Types Packs/Day Years [...] on file Legal Sex Female 5:44 AM PUMP HOUSE OPERATOR Gender Identity Not on file Sexual Orientation Not on file COVID-19 Exposure Response Date Recorded In the last month, have you been in contact with someone who was confirmed or suspected to have Coronavirus / COVID-19? Unable to assess 09/24/2019 11:31 AM CDT documented as of this encounter Plan of Treatment Not on file documented as of this encounter Visit Diagnoses Not on filedocumented in this encounter
--- OUTSIDE RECORDS SUMMARY | 2024-09-19 19:19 | XMS_ITS | Encounter Summary ---
Author Organization [facility] Address [address] [facility] [place] [address] Care Team Providers Care Behaviour Support Teacher Name Role Phone Unavailable Primary Care Provider Unavailabl e Encounter Details Date Type Department Care Team (Late st Contact Info) Description 05/18/2021 Telephone [facility] Pediatrics - Diabetes Mgmt [address] [place] [address] Radha Espinosa, DO [address] [place] [id number] Social History Tobacco Use Types Packs/Day Years [...] on file Legal Sex Female 5:44 AM COMMUNITY SERVICES OFFICER Gender Identity Not on file Sexual Orientation Not on file documented as of this encounter Miscellaneous Notes * Telephone Encounter - Dinah Alfaro RN - 08/06/2021 4:04 PM CDT Received approval for [employer] sensors and transmitters from [employer] through 08/06/22. * Telephone Encounter - Anne Nails RN - 08/03/2021 11:26 AM CDT Chart notes faxed to Tiffany Burgos at [phone] * Telephone Encounter - Marco Urbina - 05/18/2021 9:40 AM CDT Mom left voicemail. Attempted to return Mom's call. When called the message stated that this number is not accepting calls right now. Was unable to leave a voicemail. Will attempt to call again this afternoon. documented in this encounter Plan of Treatment Not on file documented as of this encounter Visit Diagnoses Not on filedocumented in this encounter
--- OUTSIDE RECORDS SUMMARY | 2024-09-19 19:19 | XMS_ITS | Encounter Summary ---
Author Organization [facility] Address [address] [facility] [place] [address] Care Team Providers Care Mail Courier Name Role Phone Unavailable Primary Care Provider Unavailabl e Encounter Details Date Type Department Care Team (Late st Contact Info) Description 11/10/2022 Telephone [facility] Pediatrics - Diabetes Mgmt [address] [place] [address] Radha Espinosa, DO [address] [place] [address] Social History Tobacco Use Types Packs/Day Years Used Date Smoking Tobacco: Never Passive Smoke Exposure: Yes Smokeless Tobacco: Never Alcohol Use Standard Drinks/Week Comments No 0 (1 standard drink = 0.6 oz pur e alcohol) PHQ-2 Answer Date Recorded Patient Health Questionnaire-2 Score 3 06/12/2020 Comments No Sex and Gender Information Value Date Recorded Sex Assigned at Not on file Legal Sex Female 5:44 AM RECREATION ATTENDANT SUPERVISOR Gender Identity Not on file Sexual Orientation Not on file documented as of this encounter Miscellaneous Notes * Telephone Encounter - Monet Matamoros RN - 11/10/2022 9:50 AM CDT Images from the original note were not included. Diabetes Sick Call Mother called in and made nurse know she is so frustrated and feels she needs a therapist. She alsomade nurse aware she no longer sees the therapist she has seen in the past. Mom also calling to Make Dr. Espinosa aware that she increased Nish's basal rates as well as her Sister's basal. Explained that increasing basal's will not necessary fix the problem. Mother is expressing her frustration with her Daughters being Defiant and ignoring their eating behaviors. Mom expresses her fear that her Daughters will have complications if she can't get them to listen to be cautious with their eating all day long. She is open to meeting with Dr. Dupree at the next appointment or when Dr. Dupree is available to provide resources in coping skills etc. Plan is to make Dr Espinosa aware of insulin basal changes. Mom- Raised Basal on Nish's insulin pump from 4.5 to 5.5 unit/ hour. Insulin pump settings aren't current in [employer]. ?? documented in this encounter Plan of Treatment Not on file documented as of this encounter Visit Diagnoses Not on filedocumented in this encounter
--- OUTSIDE RECORDS SUMMARY | 2024-09-19 19:19 | XMS_ITS | Clinical Summary ---
Author Organization [facility] Address [address] [place] [address] Care Team Providers Care Communications Station Manager Name Role Phone Unavailable Primary Care Provider Unavailabl e Source Comments [facility],non-owned Affiliates and Associated Physician Practices is amultiple site organization consisting of ambulatory clinics and hospital sitesin [place], [place], [place] and [place]. This disclosure is being madepursuant to the Care Everywhere program and may not contain all information available regarding this patient. Last updated 17.[facility] Allergies Active Allergy Reactions Criticality Noted Date Comments Penicillins Nausea and/or Vomiting 01/12/2021 Medications * Be aware that medications may not be up to date on this document. Alwaysverify current medications with the patient. ONETOUCH DELICA LANCETS 33G MISCIndications:U ncontrolled type 1 diabetes mellitus without complication Use 1 Each as directed To check blood sugars 5-9 times daily 200 Each 11 06/30/19 18 Active HUMALOG vial INJECT SUBCUTANEOUSLY UP TO 175 UNITS DAILY 6 08/20/19 18 Active Continuous Blood Gluc Cadd Manager (FREESTYLE ALLISON READER) ZACHERY Use 1 device as directed 1 device 04/29/19 19 Active Continuous Blood Gluc Sensor (FREESTYLE ALLISON SENSOR SYSTEM) MISC Use 1 device every 14 days 2 Each 3 04/29/19 19 Active Continuous Blood Gluc Cadd Manager (DEXCOM G6 PHYSICIAN PRIMARY CARE SPORTS MEDICINE) ZACHERY Use 1 Each as directed 1 device 08/24/19 19 Active Insulin Syringe-Needle U-100 (BD INSULIN SYRINGE ULTRAFINE) 31G X 15/64 1 ML syringes Use for Lantus injection daily. 100 syringe 5 02/23/19 20 Active Insulin Pen Needle (BD PEN NEEDLE MIGUEL A U/F) 32G X 4 MM MISC Use 1 Each 4 times daily 200 Each 11 07/15/19 21 Active insulin pen needle (B-D UF III MINI PEN NEEDLES) 31G X 5 MM needle 4 times daily Use for injections 4-6 times daily. 200 Each 07/23/19 21 Active Blood Glucose Monitoring Suppl (Neptune VERIO FLEX SYSTEM) w/Device KITIndications:Un controlled type 1 diabetes mellitus with hyperglycemia (HCC) Use 1 kit as directed 1 kit 1 09/09/19 21 Active glucagon (GLUCAGEN) injectionIndicati ons:Type 1 diabetes mellitus without complication, with long-term current use of insulin (HCC) Inject 1 (one) mg into muscle as needed For use with severe low blood sugar 2 Each 01/16/20 21 Active Insulin Pen Needle (PEN NEEDLES) 32G X 4 MM MISCIndications:T ype 1 diabetes mellitus without complication, with long-term current use of insulin (HCC) Use 1 Each as directed To administer insulin 4-7 times a day 200 Each 11 03/23/19 22 Active Glucagon (GVOKE HYPOPEN 2-PACK) 1 MG/0.2ML SOAJ Inject 1 Each subcutaneously as needed (severe low blood glucose) 0.4 mL 07/15/19 22 Active Lantus SoloStar pen Administer 61 units daily when off insulin pump. 30 mL 3 10/01/19 22 Active amphetamine-dextr oamphetamine XR 24hr (Adderall XR) 20 MG capsule Take 1 (one) capsule by mouth every morning 03/23/19 23 Active amphetamine-dextr oamphetamine (Adderall) 5 MG tablet Take 1 (one) tablet by mouth every evening 03/23/19 23 Active Vienva 0.1-20 MG-MCG tablet Take 1 (one) tablet by mouth once daily 03/23/19 23 Active Continuous Blood Gluc Sensor (Dexcom G6 Sensor) MISCIndications:T ype 1 diabetes mellitus with hyperglycemia (HCC) Use 1 device every 10 days 3 Each 11 06/09/19 23 Active Continuous Blood Gluc Transmit (Dexcom G6 Transmitter) MISCIndications:T ype 1 diabetes mellitus with hyperglycemia (HCC) Use 1 Each Every 90 days 1 Each 3 06/09/19 23 Active liraglutide (Victoza) 18 MG/3ML pen 04/23/19 23 Active Semaglutide(0.25 or 0.5MG/DOS) 2 MG/3ML Solution Pen-injector (Ozempic (0.25 or 0.5 MG/DOSE)) Inject 0.25 mg subcutaneously every 7 days 3 mL 5 01/06/20 23 Active mupirocin (Bactroban) 2 % ointmentIndicatio ns:Folliculitis Apply to affected area 3 times daily Reasons: Hair Follicle Inflammation 1 g 1 01/06/20 23 Active loratadine (Claritin) 10 MG tablet 06/13/19 24 Active Blood Glucose Monitoring Suppl (ONE TOUCH ULTRA MINI) w/Device KITIndications:Ty pe 1 diabetes mellitus without complication (HCC) Use for blood glucose monitoring. 1 kit 1 06/14/19 24 Active blood glucose (OneTouch Verio) test stripIndications: Uncontrolled type 1 diabetes mellitus with hyperglycemia (HCC) For use as back-up to Dexcom sensor; please dispense 100 strips every 75 days, 100 strip 11 06/14/19 24 Active acetone,urine, (Ketostix) stripIndications: Type 1 diabetes mellitus without complication, with long-term current use of insulin (HCC) Use to test every day as directed. Check if blood sugar is elevated or patient is ill. 50 strip 5 06/14/19 24 Active HumaLOG KwikPen 100 UNIT/ML penIndications:Un controlled type 1 diabetes mellitus with hyperglycemia (HCC) To use in insulin pump up to 180 units/day as directed. 60 mL 4 06/14/19 24 Active Continuous Glucose Sensor (Dexcom G7 Sensor) MISCIndications:T ype 1 diabetes mellitus with hyperglycemia (HCC) Use 1 Each every 10 days 3 Each 1 09/01/19 24 Active Active Problems Problem Noted Date Diagnosed Date Diabetic ketoacidosis withou t coma associated with type 1 diabetes mellitus 05/10/2023 Assessment & Plan (05/11/2023 3:55 PM CDT): Nish Machado is a 17 year old year old female with known T1DM who presented to [facility] ED for complaints of nausea/vomiting, ARANGO, [...] Strict I/O - OC - VS q8hr Assessment & Plan (05/10/2023 7:45 PM CDT): Assessment: Nish Machado is a 17 year old year old female with known T1DM who presented to [facility] ED for complaints of nausea/vomiting, ARANGO, tiredness, and fruity breath, consistent with DKA. She is on a continuous insulin pump which was leaking yesterday. After changing the site this afternoon, she received a 32 unit bolus. Total today was 82 units. Initial labs showed POC glucose 216/pH 7.16/HCO3 8. BMP with Na 134, K 4.5, HCO3 8, Gluc 229, AG 18. She was started on an insulin drip and 2 bag system per protocol. She requires admission for IVF, IV insulin, and closing of anion gap. Plan: - Admit to Endocrine (Purple team)/ Dr. Espinosa ENDO: - Insulin gtt @ 0.1 U/kg/hr - 2-bag protocol: - Body surface area is 2.22 meters squared. - TF mL/hr (2.5-3 L/m2) - 1/2 NS + 30 mEq KPhosphate + 30 mEq KAcetate @ 1 mL/hr - D10 1/2 NS + 30 mEq KPhosphate + 30 mEq KAcetate @ 250 mL/hr - Given patient's rapidly dropping glucose, have D12.5 fluids on standby at bedside - Keep pump disconnected until she transitions - qhr glucose checks - urine ketones qvoid until negative x2 - Nutrition consult - Diabetes education consult FEN/GI: - NPO until gap closes - Strict I/O - Carb counting diet once transitioned CV/RESP: - OC - VS q2hr - CRM - Continuous pulse ox NEURO/PAIN/PSYCH: - q2h neuro checks RENAL: - no acute concerns - Cr 0.63 ACCESS: - PIV x1 LABS: - urine ketones qvoid - BMP q4h until gap closes Assessment & Plan (05/11/2023 12:16 PM CDT): Assessment: Nish Machado is a 17 year old year old female with known T1DM who presented to [facility] ED for complaints of nausea/vomiting, ARANGO, tiredness, and fruity breath, consistent with DKA. She is on a continuous insulin pump which was leaking yesterday. After changing the site this afternoon, she received a 32 unit bolus. Total today was 82 units. Initial labs showed POC glucose 216/pH 7.16/HCO3 8. BMP with Na 134, K 4.5, HCO3 8, Gluc 229, AG 18. She was started on an insulin drip and 2 bag system per protocol. Her labs this morning were much improved showing, POC glucose 201, Na 132, Cl 106, K 4.2, HCO3 16, AG 8. Since her labs showed that her anion gap has closed and she has been titrated to receiving only D10 to keep her sugars up, she is appropriate for transitioning back to her pump. Plan: ENDO: - Decrease Insulin GTT to 0.05 ml/kg/hr and continue D10 1/2 NS + 30 mEq KPhosphate + 30 mEq KAcetate @ 250 mL/hr - Keep pump disconnected until she transitions - When she is ready to transition - wait till food is at bedside, change pump site, fill the pump with Humalog and start the pump THEN turn off the drip prior to allowing her to eat - continue half normal saline until ketones in urine at +1 - begin carb counting diet - qhr glucose checks - urine ketones qvoid until negative x2 - Nutrition consult - Diabetes education consult, appreciate recs - Strict I/O - OC - VS q4hr - CRM - Continuous pulse ox Viral enteritis 01/08/2010 Overview (01/08/2010): Monitor fluid balance. Will start bland diet this am and ADAT. Resolved Problems Problem Noted Date Diagnosed Date Resolved Date Type 1 diabetes mellitus 09/05/200903/2023 Overview (09/13/2022): Diagnosed 06/16/2004 at [facility] Transferred 05/26/2005 Insulin pump start 06/20/2007 Transferred back to [facility] in 02/2016 due to sibling diagnosis. Transferred to [facility] again on 06/29/17. Assessment & Plan (05/10/2023 6:34 PM CDT): Assessment: Nish Machado is a 17 year old year old female with known T1DM who presented to [facility] ED for complaints of , consistent with DKA. Initial labs showed POC glucose /pH /HCO3 /base deficit /AG and K+ . Nish Machado was started on an insulin drip and 2 bag system per protocol. Nish Machado requires admission for IVF, IV insulin, and closing of anion gap. Plan: - Admit to Endocrine (Purple team)/ ENDO: - Insulin gtt @ 0.1 U/kg/hr - 2-bag protocol: - Body surface area is 2.22 meters squared. - TFG: - mL/hr (2.5-3 L/m2) - 1/2 NS + 20 mEq KPhosphate + 20 mEq KAcetate @ mL/hr - D10 1/2 NS + 20 mEq KPhosphate + 20 mEq KAcetate @ mL/hr - At-home Insulin Regimen: - Lantus U - Carb ratio 1U : g - Glucose correction 1U : 50 > 150 - qhr glucose checks - urine ketones qvoid until negative x2 - SW consult - Nutrition consult - Diabetes education consult FEN/GI: - NPO until gap closes - Strict I/O - Carb counting diet once transitioned CV/RESP: - OC - VS q2hr - CRM - Continuous pulse ox NEURO/PAIN/PSYCH: - q2h neuro checks RENAL: - no acute concerns - Cr ACCESS: - PIV x2 LABS: - urine ketones qvoid - BMP q4h until gap closes Assessment & Plan (05/04/2018 11:32 AM CDT): 1) increase correction factor to 15 2) call as needed to review blood sugars 3) return in [address] Espinosa Assessment & Plan (04/09/2015 9:04 AM QUAD STAYER): 1) Decrease lantus to 69 units 2) call as needed to review blood sugars 3) call when ready to order Dexcom 4) return in 4 months for Danny Assessment & Plan (07/05/2014 2:56 PM CDT): 1) no changes 2) keep up the good work 3) return in [address] Penaloza 4) call as needed to review blood sugars. Assessment & Plan (02/26/2013 1:31 PM QUAD STAYER): 1) increase insulin to carb ratios to 1:5 2) increase correction dose to 1 unit per 50 over 100 101-150 give 1 unit 151-200 give 2 units 201-250 give 3 units 251-300 give 4 units 301-350 give 5 units 351-400 give 6 units Over 401 give 7 units 3) must give bolus prior to meals being eaten 4 ) return in [address] Penaloza Immunizations Immunization Administration Dates Next Due INFLUENZA VACCINE 02/21/2013 INFLUENZA VACCINE, QUADR. (F LUZONE; FLULAVAL; FLUARIX; AFLURIA QUADRIVALENT; 6MO+), 0.5 ML (IIV4) 01/02/2019 Family History Medical History Relation Name Comments Diabetes - Type 1 Maternal Grandfather Diabetes - Type 1 Maternal Uncle Anesthesia Reaction Mother Post-op nausea Diabetes - Type 1 Sister Relation Name Status Comments Maternal Grandfather Maternal Uncle Mother Sister Social History Tobacco Use Types Packs/Day Years Used Date Smoking Tobacco: Never Passive Smoke Exposure: Past Smokeless Tobacco: Never Tobacco Cessation:Counseling Given: Not Answered Alcohol Use Standard Drinks/Week Comments No 0 (1 standard drink = 0.6 oz pur e alcohol) AUDIT-C Answer Date Recorded Q1: How often do you have a drink containing alcohol? Never 05/10/2023 Q2: How many drinks containi ng alcohol do you have on a typical day when you are drinking? Patient does not drink Q3: How often do you have si x or more drinks on one occasion? Never 05/10/2023 PHQ-2 Answer Date Recorded Patient Health Questionnaire-2 Score 3 06/12/2020 Comments No Sex and Gender Information Value Date Recorded Sex Assigned at Not on file Legal Sex Female 5:44 AM QUAD STAYER Gender Identity Not on file Sexual Orientation Not on file Last Filed Vital Signs Vital Sign Reading Time Taken Comments Blood Pressure 118/62 06/14/2023 9:10 AM CDT Pulse 102 05/11/2023 3:51 PM CDT Temperature 37.4 C (99.3 F) 05/11/2023 10:06 AM CDT Respiratory Rate 28 05/11/2023 3:51 PM CDT Oxygen Saturation 98% 05/11/2023 3:51 PM CDT Inhaled Oxygen Concentration - - Weight 115.8 kg (255 lb 4.7 oz) 06/14/2023 9:10 AM CDT Height 158 cm (5' 2.21) 06/14/2023 9:10 AM CDT Body Mass Index 46.39 06/14/2023 9:10 AM CDT Plan of Treatment Health Maintenance Due Date Last Done Comments DIABETES RETINOPATHY SCREENING 08/14/2013 HIV SCREENING 07/15/2018 HPV VACCINE (1 - 3-dose series) 07/15/2018 CHLAMYDIA/GONORRHEA SCREENING 2019 MENINGOCOCCAL (Group B) VACCINE SHARED DECISION-MAKING (1 of 2 - Standard) 2019 HEPATITIS C SCREENING 07/11/2021 DIABETES-FOOT EXAM WITH MONOFILAMENT 07/15/2021 DTAP/TDAP/TD VACCINES (1 - Tdap) 07/15/2022 HEPATITIS B VACCINE (1 of 3 - 19+ 3-dose series) 07/15/2022 PNEUMOCOCCAL VACCINE (1 of 2 - PCV) 07/15/2022 DIABETES-HGB A1C 09/14/2023 06/14/2023, , 09/14/2022, Additional history exists COVID-19 VACCINE (2 - season) 2023 01/27/2021 DEPRESSION SCREENING 02/08/2024 03/29/2022 DIABETES - URINE PROTEIN SCREENING 02/08/2024 09/14/2022, 06/12/2020, 01/02/2019, Additional history exists PAP SMEAR 07/15/2024 DIABETES-SERUM CREATININE 07/21/20242023, 05/11/2023, 05/11/2023, Additional history exists INFLUENZA VACCINE (#1) 2024 01/02/2019, 2013 ZOSTER VACCINE (1 of 2) 07/15/2053 HIB VACCINE Aged Out No longer eligi ble based on patient's age to complete this topic MENINGOCOCCAL GROUPS A/C/Y/W VACCINE Aged Out No longer eligible based on patient's age to complete this topic Procedures Procedure Name Priority Date/Time Associated Diagnosis Comments HEMOGLOBIN A1C - POCT INTERFACED Routine 06/14/2023 9:07 AM CDT BASIC METABOLIC PANEL (CALCIUM TOTAL) Timed 05/11/2023 1:24 AM CDT MICROALB/CREAT RATIO URINE RANDOM PANEL Routine 09/14/2022 10:37 AM CDT Type 1 diabetes mellitus with hyperglycemia from Last 3 Months or Most Recently Relevant to Health Maintenance Results * (ABNORMAL) HEMOGLOBIN A1C - POCT INTERFACED (06/14/2023 9:07 AM CDT) Hemoglobin A1C POCT 9.1(H) <5.7 % 06/14/2023 9:19 AM CDT [facility] Estimated Average Glucose 214 mg/dL 06/14/2023 9:19 AM CDT [facility] Blood BLOOD SPECIMEN / Unknown 06/14/2023 9:07 AM CDT 06/14/2023 9:19 AM CDT Narrative [facility] - 06/14/2023 9:19 AM CDT HbA1c Interpretation: Normal: < 5.7% Pre-diabetes: 5.7-6.4% Diabetes: Equal to or greater than 6.5% This test should only be used to monitor, not diagnose diabetes. Test results diagnostic of diabetes should be repeated by another method with a different assay principle for confirmation. Treatment target values recommended by ADA and other clinical organizations should be used to evaluate metabolic control in patients. Patients with a hemoglobin of <7 or >24 should not be tested using this method. Patients known to have these conditions should be assayed by a test employing a different assay principle. Glycated hemoglobin F is not measured by the DCA HbA1c assay. At very high levels of hemoglobin F (> 10%), HbA1c is lower than expected. Patients with HbS or HbE should not be tested using this device. HbS or HbE cause a higher result than expected. Conditions such as hemolytic anemia, polycythemia, homozygous and HbC, can result in decreased life span of the red blood cells, which causes HbA1c results to be lower than expected. The Siemens DCA assay for the measurement of HbA1c is a National Glycohemoglobin Standardization Program (NGSP) certified method. Ranjana Baum SNAKE CHARMER-DIAMOND POWDER TECHNICIAN LAB - POINT OF CARE ORD ERABLES Final Result Performing Organization Address City/State/[facility] Co de Phone Number [facility] [phone] * (ABNORMAL) BASIC METABOLIC PANEL (CALCIUM TOTAL) (05/11/2023 1:24 AM CDT) BUN 6(L) 7 - 26 mg/dL 05/11/2023 2:[address] [facility] Creatinine 0.49(L) 0.56 - 0.96 mg/dL 05/11/2023 2:[address] [facility] Sodium 131(L) 136 - 145 mmol/L 05/11/2023 2:[address] [facility] Potassium 4.4 3.5 - 4.5 mmol/L 05/11/2023 2:[address] [facility] Chloride 108(H) 98 - 107 mmol/L 05/11/2023 2:[address] [facility] CO2 13(L) 22 - 29 mmol/L 05/11/2023 2:[address] [facility] Glucose 237(H) 70 - 115 mg/dL 05/11/2023 2:[address] [facility] Calcium 9.0 8.4 - 10.2 mg/dL 05/11/2023 2:10 AM [facility] Anion Gap 10 6 - 16 05/11/2023 2:10 AM [facility] BUN/Creatinine Ratio 12 7 - 23 05/11/2023 2:10 AM [facility] Osmolality Calculated 277 275 - 295 mOsm/kg 05/11/2023 2:10 AM [facility] eGFR by CKD-EPI >90 >=90 mL/min/1.7 3 m2 05/11/2023 2:10 AM [facility] Blood BLOOD SPECIMEN / Unknown Venipuncture / Unknown 05/11/2023 1:24 AM CDT 05/11/2023 1:28 AM CDT us Matheus Shook MD LAB - CHEMISTRY ORDERABLES Final Result [facility] [address] [place] [address], [facility] [phone] * MICROALB/CREAT RATIO URINE RANDOM PANEL (09/14/2022 10:37 AM CDT) Albumin Random Urine <5.0 Not Established ug/mL 09/14/2022 11:26 AM [facility] Creatinine Urine 59.40 Not Established mg/dL 09/14/2022 11:26 AM [facility] Urine Albumin/Creati nine Ratio <8 <30 mg/g 09/14/2022 11:26 AM [facility] Albumin/Creati nine Ratio Urine See Comment <30 mg/g 09/14/2022 11:26 AM [facility] Comment:Unable to calculate the Urine Albumin/Creatinine Ratio due to one or more analyte concentration(s) being outside the measuring limits of the instrument. Urine URINE SPECIMEN OBTAINED BY CLEAN CATCH PROCEDURE / Unknown Collection / Unknown 09/14/2022 10:37 AM CDT 09/14/2022 11:05 AM CDT us Radha Espinosa DO LAB - URINE CHEMISTRY ORDE RABEMMANUELLE Final Result [facility] [address] [place] [address], [facility] [phone] from Last 3 Months or Most Recently Relevant to Health Maintenance Insurance [facility] Advance Directives * Full Code (Latest Code Status on File) Date Activated Date Inactivated Comments 05/10/2023 6:53 PM 05/11/2023 6:52 PM
--- OUTSIDE RECORDS SUMMARY | 2024-09-19 19:19 | XMS_ITS | Encounter Summary ---
Author Organization [facility] Address [address] [place] [address] Care Team Providers Care Insecticide Supervisor Name Role Phone Unavailable Primary Care Provider Unavailabl e Reason for Visit * Reason Onset Date Comments Medication Prior Auth Request 08/25/2018 Encounter Details Date Type Department Care Team (Late st Contact Info) Description 08/25/2018 Telephone [facility] Pediatrics - Diabetes Mgmt [address] [place] [address]. 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 Most recent A1C we have is from 04/2018, which was given to [facility]. . Tiffany is going to notify mom to schedule an appt and get A1c per [facility]'s requirement. * Telephone Encounter - Mena Fischer RN - 08/25/2018 8:26 AM CDT LMOM for mom to watch Dexcom tutorial to proceed with approval for this CGM. documented in this encounter Plan of Treatment Not on file documented as of this encounter Visit Diagnoses Not on filedocumented in this encounter
--- OUTSIDE RECORDS SUMMARY | 2024-09-19 19:19 | XMS_ITS | Encounter Summary ---
Author Organization [facility] Address [address] [place] [address] Care Team Providers Care Marketing Analytics Specialist Name Role Phone Unavailable Primary Care Provider Unavailabl e Encounter Details Date Type Department Care Team (Late st Contact Info) Description 01/15/2021 Telephone [facility] Pediatrics - Diabetes Mgmt [address] [place] [id number] Radha Espinosa, DO [address] [place] [id number] Social History Tobacco Use Types Packs/Day Years [...] on file Legal Sex Female 5:44 AM MEDICATION RECONCILIATION TECHNICIAN Gender Identity Not on file Sexual Orientation Not on file COVID-19 Exposure Response Date Recorded In the last month, have you been in contact with someone who was confirmed or suspected to have Coronavirus / COVID-19? No / Unsure 01/12/2021 10:43 AM MEDICATION RECONCILIATION TECHNICIAN documented as of this encounter Miscellaneous Notes * Telephone Encounter - Anne Nails RN - 01/15/2021 11:27 AM MEDICATION RECONCILIATION TECHNICIAN Mom called and updated that glucagon was switched to Gvoke d/t insurance. Explained steps to give Gvoke. All questions answered. CATION RECONCILIATION TECHNICIAN * Telephone Encounter - Anne Nails RN - 01/15/2021 11:08 AM MEDICATION RECONCILIATION TECHNICIAN Pharmacy called and asked if it was ok to switch glucagon rx to Gvoke d/t insurance request. CATION RECONCILIATION TECHNICIAN documented in this encounter Plan of Treatment Not on file documented as of this encounter Visit Diagnoses Not on filedocumented in this encounter
--- OUTSIDE RECORDS SUMMARY | 2024-09-19 19:19 | XMS_ITS | Encounter Summary ---
Author Organization [facility] Address [address] [place] [address] Care Team Providers Care Legal Editor Name Role Phone Unavailable Primary Care Provider Unavailabl e Reason for Visit * Reason Onset Date Comments Letter 09/04/2018 Encounter Details Date Type Department Care Team (Late st Contact Info) Description 09/04/2018 Telephone [facility] Pediatrics - Diabetes Mgmt [address] [place] [id number] Radha Espinosa, [address] [address] Letter Social History Tobacco Use Types Packs/Day Years Used Date Smoking Tobacco: Passive Smo ke Exposure - Never Smoker Smokeless Tobacco: Never Alcohol Use Standard Drinks/Week Comments No 0 (1 standard drink = 0.6 oz pur e alcohol) Comments No Sex and Gender Information Value Date Recorded Sex Assigned at Not on file Legal Sex Female 5:44 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 [phone] documented in this encounter Miscellaneous Notes * Telephone Encounter - Ludwin Curran RN - 09/22/2018 10:05 AM CDT I returned mom's call, she requests that the prior authorization paperwork regarding the denial on Nish's Dexcom be expedited. She said she gave the paperwork to Dr Espinosa. I will touch base withDr Espinosa to determine what's needed and we will process it accordingly. Mom said she request the updated software for TSlim X2- she notified [facility] of this and they shouldbe faxing us the prescription for the update. I notified [facility] to send us the RX. * Telephone Encounter - Mena Fischer RN - 09/04/2018 4:03 PM CDT Tiffany from [facility] in [place], [place] called to ask about getting a more recent A1C on Nish. I told her she would be coming in on 09/19/2018 for a follow up appointment. She asked for updated clinic notes and A1C's to be sent at that time. documented in this encounter Plan of Treatment Not on file documented as of this encounter Visit Diagnoses Diagnosis Uncontrolled type 1 diabetes mellitus without complication documented in this encounter
--- OUTSIDE RECORDS SUMMARY | 2024-09-19 19:19 | XMS_ITS | Encounter Summary ---
Author Organization [facility] Address [address] [place] [address] Care Team Providers Care Software Design Manager Name Role Phone Unavailable Primary Care Provider Unavailabl e Encounter Details Date Type Department Care Team (Late st Contact Info) Description 06/29/2017 Telephone [facility] Pediatrics - Diabetes [address] [address] Renata Boateng RN Social History Tobacco Use Types Packs/Day Years Used Date Smoking Tobacco: Passive Smo ke Exposure - Never Smoker Smokeless Tobacco: Never Alcohol Use Standard Drinks/Week Comments No 0 (1 standard drink = 0.6 oz pur e alcohol) Comments No Sex and Gender Information Value Date Recorded Sex Assigned at Not on file Legal Sex Female 5:44 AM LIABILITY CLAIMS MANAGER Gender Identity Not on file Sexual Orientation Not on file documented as of this encounter Miscellaneous Notes * Telephone Encounter - Renata Boateng RN - 06/29/2017 1:42 PM CDT Diabetes Sick Call Patient: Nish Machado Date: 06/29/2017 Current Blood Glucose:209 Current Ketone result: moderate Last insulin given: Humalog: Dose 12units Time 1030 Symptoms: none Recent Illness: none Plan: Give 18 (13 for carbs and 5 correction) units now with syringe. Push sugar free fluid. Recheck blood glucose and urine ketones in two hours. Call if moderate to large. Miscellaneous: * Telephone Encounter - Renata Boateng RN - 06/29/2017 12:55 PM CDT Diabetes Sick Call Patient: Nish Machado Date: 06/29/2017 Current Blood Glucose: Current Ketone result: moderate Last insulin given: Humalog: Dose 12 units Time 1030 Symptoms: Recent Illness: none Plan: Give units now with syringe. Push sugar free fluid. Recheck blood glucose and urine ketones in two hours. Miscellaneous: pump site changed at 1030 Attempted to call mother twice. No answer. Left vm to call office for assistance with ketones. documented in this encounter Plan of Treatment Not on file documented as of this encounter Visit Diagnoses Not on filedocumented in this encounter
--- OUTSIDE RECORDS SUMMARY | 2024-09-19 19:19 | XMS_ITS | Encounter Summary ---
Author Organization [facility] Address [address] [facility] [place] [address] Care Team Providers Care Sheet Metal Layout Mechanic Name Role Phone Unavailable Primary Care Provider Unavailabl e Reason for Visit * Reason Onset Date Comments MEDICATION REFILL 03/23/2021 Encounter Details Date Type Department Care Team (Late st Contact Info) Description 03/23/2021 Refill [facility] Pediatrics - Diabetes [address] [address] Ranjana Baum, VP INFORMATION TECHNOLOGY[employer] [address] [place] [phone] MEDICATION REFILL Social History Tobacco Use Types [...] on file Legal Sex Female 5:44 AM SERVICE 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
[2024-09-19 19:35] VITALS: BP 136/88; PULSE 105; RESP 20; TEMP 36.3; O2SAT 97
--- NOTE | 2024-09-19 19:40 | ED_ITS ---
HPI - Nausea/Vomiting/Diarrhea General Chief complaint: Abdominal Pain Stated complaint: nausea/dizziness/hyperglycemia Time Seen by Provider: 09/19/24 19:39 Source: patient Mode of arrival: ambulatory Limitations: no limitations History of Present Illness HPI Narrative: 19-year-old female with a history of diaper diabetes mellitus, DKA 2 years ago presents to the ED with -- elevated blood sugars for the past 4 days -- nausea and vomiting since this morning. She has had 6 episodes of vomiting. no diarrhea. -- Epigastric abdominal pain Patient had a urinary tract infection 2 weeks ago and received antibiotics. Patient does not have any fever or chills. No obvious focus of infection. Patient is currently on her menstrual period. patient has been compliant with her Lantus and sliding scale coverage. MD elicited complaint: nausea, vomiting and abdominal pain Pertinent past history: other ( Type 1 diabetes mellitus) Onset (ago): hour(s) ( 12 hours) Description of vomiting: food contents and watery Associated nausea: Yes Associated abdominal pain: Yes Location of pain: epigastric Pain consistency: constant Quality: aching Exacerbating factors: none Relieving factors: none Associated symptoms: denies other symptoms Related Data Home Medications ?Medication ?Instructions ?Recorded ?Confirmed ?Last Taken ?Type cholecalciferol (vitamin D3) 25 10/27/22 10/27/22 Unknown History mcg (1,000 unit) tablet insulin lispro 100 unit/mL subcut 10/27/22 Unknown History subcutaneous pen (Humalog KwikPen (U-100) Insulin) levonorgestrel-ethinyl estradiol tablet 10/27/22 Unknown History 0.1 mg-20 mcg tablet (Lessina) azithromycin 500 mg tablet mg 12/27/22 Unknown History Allergies Allergy/AdvReac Type Severity Reaction Status Date / Time Penicillins Allergy Unknown Verified 09/19/24 19:55 Review of Systems 2 Review of Systems: All systems reviewed & are unremarkable except as noted in HPI and below Constitutional: Constitutional: Reports as per HPI and Reports no additional constitutional complaints Eyes: Eyes: Reports as per HPI and Reports no additional eye complaints ENT: Reports system reviewed and no additional complaints, except as documented and Reports as per HPI Cardiovascular: Cardiovascular: Reports as per HPI and Reports no additional cardiovascular complaints Respiratory: Respiratory: Reports as per HPI and Reports no additional respiratory complaints Gastrointestinal: Gastrointestinal: Reports as per HPI, Reports no additional gastrointestinal complaints, Reports abdominal pain, Reports nausea and Reports vomiting Genitourinary: Genitourinary: Reports no additional female genitourinary complaints Musculoskeletal: Musculoskeletal: Reports no additional musculoskeletal complaints and Reports as per HPI Integumentary/Breasts: Skin/Breast: Reports system reviewed and no additional complaints, except as docu and Reports as per HPI Neurologic: Reports system reviewed and no additional complaints, except as documented and Reports as per HPI Psychiatric: Psychiatric: Reports no additional psychiatric complaints and Reports as per HPI Endocrine: Endocrine: Reports no additional endocrine complaints and Reports as per HPI Hematologic/Lymphatic: Hematologic/Lymphatic: Reports no additional hematologic/lymphatic complaints and Reports as per HPI Allergic/Immunologic: Allergic/Immunologic: Reports no additional allergic/immunologic complaints and Reports as per HPI [facility] Past Medical History Medical History (Updated 09/19/24 @ 21:58 by Nathaniel Medina MD) DKA (diabetic ketoacidosis) Type 1 diabetes Exam 2 Narrative: pulse of 105. Afebrile oxygen saturation 97% on room air Const: General: no acute distress Orientation/consciousness: patient oriented x3 Limitations: no limitations HENMT: Head: normal to inspection Ears: external ears normal F zenon/Nose/Sinus: Normal external nose present Face and sinus: normal facial exam Mouth: Yes Normal oral and palatal mucosa present Throat: posterior oropharynx normal Eyes: Conjunctivae: conjunctivae normal Cornea: corneas normal Pupils: E qual, round and reactive pupils present EOM: EOMs intact bilaterally D irect Ophthalmoscopy: no photophobia Neck: Neck: normal visual inspection, no lymphadenopathy and no meningeal signs Chest: Chest palpation & inspection: normal inspection of the chest Resp: Effort & Inspection: normal respiratory effort Auscultation: clear to auscultation bilaterally Cardio: Rate: regular rate Rhythm: regular rhythm GI: GI Palp: Yes Soft to palpation Auscultation: normal bowel sounds O ther: epigastric tenderness without any rigidity/ rebound. : General: Yes no CVA tenderness Back/Spine/Pelvis: Back: no CVA tenderness Skin: General skin exam: normal color Rashes: no rashes Wounds: no wounds Neuro: General: patient oriented x3, moves all extremities, no meningeal signs, no focal motor deficits and CN's II-XI intact bilaterally Cranial nerves: Yes Nystagmus not present Speech: normal speech Extrem: General: normal to inspection and no clubbing, cyanosis or edema Psych: Mental Status: mental status grossly normal Affect: normal affect Attitude: cooperative Course Course Emergency Course: uncontrolled hyperglycemia-- patient states she is compliant with her medication. No evidence of infection. Patient was noted to have a blood sugar of 489. No anion gap. Patient received 2 L of IV fluids and regular insulin 10 units x 2 with her last sugar being at 269. Epigastric pain- patient has epigastric tenderness without any rigidity or rebound. White count of 12.1. normal lactate and a lipase of 19 patient appears to have a positive UA but she is currently on her period. Vital Signs Vital signs: Vital Signs Temperature 36.3 C L 09/19/24 19:35 Pulse Rate 105 H 09/19/24 19:35 Respiratory Rate 20 09/19/24 19:35 Blood Pressure 136/88 09/19/24 19:35 Pulse Oximetry 97 09/19/24 19:35 Oxygen Delivery Room Air 09/19/24 19:35 Temperature 36.3 C L 09/19/24 19:35 Pulse Rate 105 H 09/19/24 19:35 Respiratory Rate 20 09/19/24 19:35 Blood Pressure 136/88 09/19/24 19:35 Pulse Oximetry 97 09/19/24 19:35 Oxygen Delivery Room Air 09/19/24 19:35 MDM - Nausea/Vomiting/Diarrhea MDM Narrative Medical decision making narrative: uncontrolled hyperglycemia epigastric pain Differential Diagnosis Differential diagnosis: Likely food poisoning and gastroenteritis Lab Data Attestation: I reviewed the patient's lab results. 09/19/24 19:50 09/19/24 19:50 Labs: Lab Results 09/19/24 09/19/24 09/19/24 Range/Units 19:38 19:50 20:00 WBC 12.1 H (4.8-10.8) K/mm3 RBC 5.03 (4.20-5.40) M/mm3 Hgb 13.5 (12.0-15.0) g/dL Hct 41.5 (35.0-49.0) % MCV 82.5 (78.0-102.0) fL MCH 26.8 L (27.0-31.0) pg MCHC 32.5 (32-36) g/dL RDW 13.5 (11.6-14.4) % Plt Count 489 H (150-420) K/mm3 MPV 9.7 (9.2-11.8) fl Immature Gran % (Auto) 0.7 H (0.0-0.0) % Neut % (Auto) 59.7 (50.0-70.0) % Lymph % (Auto) 30.8 (18.0-42.0) % [place] % (Auto) 6.6 (2.0-11.0) % Eos % (Auto) 1.2 (1.0-6.0) % Baso % (Auto) 1.0 (0.0-1.0) % Lymph # (Auto) 3.73 (1.10-4.50) K/mm3 [place] # (Auto) 0.80 (0.10-0.90) K/mm3 Eos # (Auto) 0.14 (0.02-0.50) K/mm3 Baso # (Auto) 0.12 H (0.00-0.10) K/mm3 Abs Immat Gran (auto) 0.09 H (0.00-0.00) K/mm3 Absolute Neuts (auto) 7.23 H (1.70-7.20) K/mm3 Absolute Nucleated RBC 0.00 (0.00-0.00) K/mm3 Nucleated RBC % 0.0 (0-0.0) % Sodium 134 L (137-145) mmol/L Potassium 4.4 (3.4-5.0) mmol/L Chloride 100 (98-107) mmol/L Carbon Dioxide 20 L (22-30) mmol/L Anion Gap 14 H (4-12) mmol/L BUN 14 (7-17) mg/dL Creatinine 0.68 L (0.7-1.0) mg/dL Estim Creat Clear Calc 138 ml/min Estimated GFR > 60 (59 - ) Glucose 445 H (65-110) mg/dL POC Capillary Glucose 441 H (65-105) mg/dl Calculated Osmolality 297 H (285-295) mOsm/kg Lactic Acid 1.7 (0.4-2.0) mmol/L Calcium 10.1 (8.4-10.2) mg/dL Phosphorus 3.3 (2.5-4.5) mg/dL Total Bilirubin 0.9 (0.2-1.3) mg/dL AST 31 (14-36) U/L ALT 27 (6-35) U/L Alkaline Phosphatase 110 (38-126) U/L Troponin I < 0.012 (0.000-0.034) ng/mL Total Protein 8.4 H (6.3-8.2) g/dL Albumin 4.6 (3.5-5.1) g/dL Lipase 19 L (23-300) U/L Urine Color Light yellow (Yellow) Urine Appearance Cloudy A (Clear) Urine pH 6.0 (5.0-8.0) Ur Specific Lockhart <= 1.005 L (1.010-1.020) Urine Protein Trace H (Negative) Urine Glucose (UA) 3+ H (Negative) Urine Ketones 2+ H (Negative) Ur Blood (Man) 3+ H (Negative) Urine Nitrate Negative (Negative) Urine Bilirubin Negative (Negative) Urine Urobilinogen 0.2 (0.2-1.0) mg/dL Leukocyte Esterase Rfl Trace H (Negative) ARIEL/UL Urine RBC >100 H (0-2) /hpf Urine WBC 11-20 H (0-3) /hpf Ur Squamous Epith Cells Few (Few) /hpf Urine Bacteria 1+ H (None) /hpf Urine Test Negative Monoscreen Negative (Negative) 09/19/24 09/19/24 Range/Units 20:50 21:54 WBC (4.8-10.8) K/mm3 RBC (4.20-5.40) M/mm3 Hgb (12.0-15.0) g/dL Hct (35.0-49.0) % MCV (78.0-102.0) fL MCH (27.0-31.0) pg MCHC (32-36) g/dL RDW (11.6-14.4) % Plt Count (150-420) K/mm3 MPV (9.2-11.8) fl Immature Gran % (Auto) (0.0-0.0) % Neut % (Auto) (50.0-70.0) % Lymph % (Auto) (18.0-42.0) % [place] % (Auto) (2.0-11.0) % Eos % (Auto) (1.0-6.0) % Baso % (Auto) (0.0-1.0) % Lymph # (Auto) (1.10-4.50) K/mm3 [place] # (Auto) (0.10-0.90) K/mm3 Eos # (Auto) (0.02-0.50) K/mm3 Baso # (Auto) (0.00-0.10) K/mm3 Abs Immat Gran (auto) (0.00-0.00) K/mm3 Absolute Neuts (auto) (1.70-7.20) K/mm3 Absolute Nucleated RBC (0.00-0.00) K/mm3 Nucleated RBC % (0-0.0) % Sodium (137-145) mmol/L Potassium (3.4-5.0) mmol/L Chloride (98-107) mmol/L Carbon Dioxide (22-30) mmol/L Anion Gap (4-12) mmol/L BUN (7-17) mg/dL Creatinine (0.7-1.0) mg/dL Estim Creat Clear Calc ml/min Estimated GFR (59 - ) Glucose (65-110) mg/dL POC Capillary Glucose 385 H 269 H (65-105) mg/dl Calculated Osmolality (285-295) mOsm/kg Lactic Acid (0.4-2.0) mmol/L Calcium (8.4-10.2) mg/dL Phosphorus (2.5-4.5) mg/dL Total Bilirubin (0.2-1.3) mg/dL AST (14-36) U/L ALT (6-35) U/L Alkaline Phosphatase (38-126) U/L Troponin I (0.000-0.034) ng/mL Total Protein (6.3-8.2) g/dL Albumin (3.5-5.1) g/dL Lipase (23-300) U/L Urine Color (Yellow) Urine Appearance (Clear) Urine pH (5.0-8.0) Ur Specific [place] (1.010-1.020) Urine Protein (Negative) Urine Glucose (UA) (Negative) Urine Ketones (Negative) Ur Blood (Man) (Negative) Urine Nitrate (Negative) Urine Bilirubin (Negative) Urine Urobilinogen (0.2-1.0) mg/dL Leukocyte Esterase Rfl (Negative) ARIEL/UL Urine RBC (0-2) /hpf Urine WBC (0-3) /hpf Ur Squamous Epith Cells (Few) /hpf Urine Bacteria (None) /hpf Urine Test Monoscreen (Negative) Discharge Plan Discharge Clinical Impression: Hyperglycemia due to type 1 diabetes mellitus, Acute epigastric pain Patient Disposition: Home Condition: Stable Instructions: Antibiotic Form, Managing Diabetes During Sick Days (ED), Diabetic Hyperglycemia (ED) Patient Language: Mosotho Prescriptions: No Action levonorgestrel-ethinyl estrad [Lessina] 0.1-20 mg-mcg tablet insulin lispro [Humalog KwikPen Insulin] 100 unit/mL insulin pen SUBCUT cholecalciferol (vitamin D3) 25 mcg (1,000 unit) tablet azithromycin 500 mg tablet cefdinir 300 mg capsule 300 mg PO Q12H 10 Days Qty: 20 0RF loratadine [Claritin] 10 mg tablet 10 mg PO DAILY Qty: 30 0RF triamcinolone acetonide [Nasacort] 55 mcg aerosol,spray 1 spray intranasal BID 30 Days Qty: 16.9 0RF Rx Instructions: administer into each nostril benzonatate 200 mg capsule 200 mg PO TID PRN (Reason: cough) Qty: 20 0RF Follow-up/Referrals: UNKNOWN,DOCTOR [Non-Staff] - Time of Disposition: 21:57
[2024-09-19 20:01] LABS: Hematocrit 41.5 % (35.0-49.0); Hemoglobin 13.5 g/dL (12.0-15.0); Immature Granulocyte Percent A 0.7 % (0.0-0.0); Lymphocytes Absolute Auto 3.73 K/mm3 (1.10-4.50); Mean Corpuscular HGB Conc 32.5 g/dL (32-36); Mean Corpuscular Hemoglobin 26.8 pg (27.0-31.0); Mean Corpuscular Volume 82.5 fL (78.0-102.0); Nucleated Red Blood Cells Absolute Auto 0.00 K/mm3 (0.00-0.00); Nucleated Red Blood Cells Perc 0.0 % (0-0.0); Platelet Count Result 489 K/mm3 (150-420); Red Blood Count 5.03 M/mm3 (4.20-5.40); White Blood Count 12.1 K/mm3 (4.8-10.8)
[2024-09-19 20:12] LABS: Lipase 19 U/L (23-300)
[2024-09-19 20:13] LABS: Alanine Aminotransferase 27 U/L (6-35); Albumin Level 4.6 g/dL (3.5-5.1); Alkaline Phosphatase 110 U/L (38-126); Anion Gap 14 mmol/L (4-12); Aspartate Amino Transferase 31 U/L (14-36); Bilirubin,Total 0.9 mg/dL (0.2-1.3); Blood Urea Nitrogen 14 mg/dL (7-17); Calcium 10.1 mg/dL (8.4-10.2); Carbon Dioxide 20 mmol/L (22-30); Chloride 100 mmol/L (98-107); Estimated CRCL calculation 138 ml/min; Estimated Glomerular Filt Rate > 60; Glucose 445 mg/dL (65-110); Osmolality Calculated 297 mOsm/kg (285-295); Potassium 4.4 mmol/L (3.4-5.0); Sodium 134 mmol/L (137-145); Total Protein 8.4 g/dL (6.3-8.2)
[2024-09-19] MEDS: SODIUM CHLORIDE 0.9% IV 1,000 ML 999 ML IV CONT ×2 (20:13→21:07)
[2024-09-19] MEDS: METOCLOPRAMIDE HCL INJ 10 MG/2 ML VIAL IV PUSH (20:14)
[2024-09-19] MEDS: INSULIN HUMAN REGULAR (*BKC) 1,000 UNITS/10 ML VIAL 10 UNITS IV PUSH ×2 (20:14→21:08)
[2024-09-19 20:19] LABS: Add Urine Microscopic? YES; Glucose Urine UA 3+ (Negative); Leukocyte Esterase Ur Trace LEU/UL (Negative); Nitrate Urine Negative (Negative); Specific Grav Ur <= 1.005 (1.010-1.020)
[2024-09-19 20:23] LABS: Pregnancy On Board Control Positive
[2024-09-19 20:24] LABS: Troponin I < 0.012 ng/mL (0.000-0.034)
--- OUTSIDE RECORDS SUMMARY | 2024-09-19 20:32 | XMS_ITS | Clinical Summary ---
Author Organization [facility] Address [address] [place] [address] Care Team Providers Care Wrapper Selector Name Role Phone Mo Vora MD Primary [...] tablet 12/29/19 24 025 Active blood-glucose sensor ([employer] G7 Sensor) deviceIndications: Type 1 diabetes mellitus [...] female with known T1DM who presented to [facility] ED for complaints of nausea/vomiting, ARANGO, [...] We have discussed with the patient her cold strip feeder concerns to ensure close monitoring of her [...] visit. Assessment & Plan (03/11/2022 10:38 AM CORRECTIONAL OFFICER CHIEF): We have had talks with the patient [...] then. Assessment & Plan (02/11/2022 11:06 AM CORRECTIONAL OFFICER CHIEF): I will make a referral to 1 of the obesity medicine doctors to see if they may be offer her something to help curb her appetite. She will continue to work with the dietitian, therapist and psych. We will see her back next month to reassess her progress. Assessment & Plan (01/07/2022 9:33 AM CORRECTIONAL OFFICER CHIEF): Given their past success the patient would [...] 05/19/2016 Assessment & Plan (01/07/2022 9:32 AM CORRECTIONAL OFFICER CHIEF): Continue glycemic control Resolved Problems Problem Noted Date Diagnosed Date Resolved Date Flu-like symptoms 04/17/2024 06/27/2024 Acute URI 04/17/2024 06/27/2024 Rash 04/17/2024 06/27/2024 Vomiting and diarrhea 04/30/20172023 Gastroenteritis, acute 04/30/201712/28 Viral enteritis 01/08/2010 12/29/2023 Overview (10/24/2023): Monitor fluid balance. Will start bland diet this am and ADAT. Encounters Date Type Department Care Team Description 08/02/2024 3:30 PM CDT Office Visit 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 Primary Care at [address] [phone] Mo Vora MD 06/28/2024 Results Follow-Up [facility] Primary Care at [address] [phone] Mo Vora MD Lipid panel 06/27/2024 3:30 PM CDT Lab [facility] - Outpatient Center at [address] [place] [address] Mixed hyperlipidemia 06/27/2024 3:00 PM CDT Office Visit [facility] Endocrine Care at [address] [place] [phone] Padmini Jin, Type 1 diabetes mellitus with hyperglycemia (HCC) (Primary Dx) 06/27/2024 2:30 PM CDT Office Visit [facility] Primary Care at [address] [place] [phone] Mo Vora MD Routine adult health maintenance [...] on file Legal Sex Female 6:42 AM CORRECTIONAL OFFICER CHIEF Gender Identity Not on file Sexual Orientation [...] last revised on 2017. Testing performed by: [facility], [address] [place] [address]., [address] Triglycerides 238(H) <=149 mg/dL [place] Comment: Interpretive [...] last revised on 2017. Testing performed by: [address] [address] HDL 28(L) >=40 mg/dL [place] Comment: Interpretive [...] last revised on 2017. Testing performed by: [address] [address] LDL, calculated 106 <=129 mg/dL [place] Comment: [...] last revised on 2023. Testing performed by: [address] [address] Non-HDL Cholesterol 147 mg/dL [place] Comment: [...] last revised on 2017. Testing performed by: [address] [address] Chol/HDL ratio 6 [place] [facility] Comment:Testing performed by : [address] [address] Blood 06/27/2024 3:29 PM CDT 06/27/2024 8:03 PM CDT us Mo Vora MD LAB BLOOD ORDERABLE S Final Result [place] [facility] [address] [address] [place] [address] * (ABNORMAL) POCT hemoglobin A1c (06/27/2024 3:23 PM CDT) [facility] Hemoglobin A1C, POC 7.4(A) 4.0 - 5.6 % Blood 06/27/2024 3:23 PM CDT Padmini Jin DO POINT OF CARE TEST ORDERABL ES Final Result * RetinaVue Scanner - OU - Both Eyes (12/29/2023) Anatomical Region Laterality Modality Head Fundus Photograp hy 12/29/2023 Padmini Jin DO OPHTH PHOTOGRAPHY Final Res ult * Comprehensive metabolic panel (12/09/2023) [facility] SCRIBED Sodium 136 - - - mmol/L [...] - EXTERNAL LAB SCRIBED eGFR in NonAfrican Guamanian >60 - - - EXTERNAL LAB Blood 12/09/2023 Shashi Provider LAB BLOOD ORDERABLES Aaliyah l Result Performing Organization Address [facility] Co de Phone Number EXTERNAL LAB * Albumin Creatinine Ratio, Urine (10/24/2023 11:15 AM CDT) Albumin Ur 14.0 mg/L Comment: Interpretive Data No reference range established. Current interpretive data was last revised 2018. Creatinine Ur 103.1 mg/dL [facility] Comment: Interpretive Data No reference range established. Current interpretive data was last revised 2018. Albumin Creatinine Ratio, Ur 14 1 - 29 mg/g [facility] Urine 10/24/2023 11:1 5 AM CDT 10/24/2023 7:20 PM CDT Mo Vora MD LAB URINE ORDERABLE S Final Result Performing Organization Address [facility] de Phone Number [place] [address] [address] Department [place] [address] * TSH (10/24/2023 11:15 AM CDT) Thyroid Stimulating Hormone 1.16 0.30 - 4.20 mcIUnit/mL Blood 10/24/2023 11:1 5 AM CDT 10/24/2023 7:20 PM CDT Mo Vora MD LAB BLOOD ORDERABLE S Final Result Performing Organization Address [facility] [place] [address] [address] Department [place] [address] from Last 3 Months or Most Recently Relevant to Health Maintenance Insurance [facility] Advance Directives For more information, please contact: [phone] * Full Code (Latest Code Status on File) Date Activated Date Inactivated Comments 06/29/2022 12:03 PM 06/29/2022 7:40 PM * Full Code Date Activated Date Inactivated Comments 06/29/2022 12:03 PM 06/29/2022 12:03 PM Care Teams Wrapper Selector Relationship Specialty Start Date End Date Mo Vora MD [address] [place] [address] PCP - General Family Practice 09/21/23
--- OUTSIDE RECORDS SUMMARY | 2024-09-19 20:32 | XMS_ITS | Encounter Summary ---
Author Organization [facility] Address [address] [place] [address] Care Team Providers Care Packaging Machine Operator Name Role Phone Unavailable Primary Care Provider Unavailabl e Reason for Visit * Reason Onset Date Comments Blood Sugar Problem 11/26/2014 Encounter Details Date Type Department Care Team (Late st Contact Info) Description 11/26/2014 Telephone [facility] Pediatrics - Diabetes [address] [address] Kiana Villela, FIREWOOD CUTTER-INSERTER Retired Blood Sugar Problem Social History Tobacco Use Types Packs/Day Years Used Date Smoking Tobacco: Passive Smo ke Exposure - Never Smoker Smokeless Tobacco: Never Alcohol Use Standard Drinks/Week Comments No 0 (1 standard drink = 0.6 oz pur e alcohol) Comments No Sex and Gender Information Value Date Recorded Sex Assigned at Not on file Legal Sex Female 5:44 AM CLIMBING GUIDE Gender Identity Not on file Sexual Orientation Not on file documented as of this encounter Miscellaneous Notes * Telephone Encounter - Ludwin Curran RN - 11/26/2014 8:54 AM CDT Diabetes Sick Call Patient: Nish Machado Date: 11/26/2014 Mom called bilingual secretary line and I was given message [...] and scenarios that warrant an immediate call. BING GUIDE documented in this encounter Plan of Treatment Not on file documented as of this encounter Visit Diagnoses Not on filedocumented in this encounter
--- OUTSIDE RECORDS SUMMARY | 2024-09-19 20:32 | XMS_ITS | Encounter Summary ---
Author Organization [facility] Address [address] [facility] [place] [address] Care Team Providers Care Spar Finisher Name Role Phone Unavailable Primary Care Provider Unavailabl e Encounter Details Date Type Department Care Team (Late st Contact Info) Description 07/29/2020 Telephone [facility] Pediatrics - Diabetes Mgmt [address] [place] [address] Radha Espinosa, DO [address] [place] [address] Social History Tobacco Use Types Packs/Day Years [...] on file Legal Sex Female 5:44 AM MACHINE CLOTH MEASURER Gender Identity Not on file Sexual Orientation Not on file documented as of this encounter Miscellaneous Notes * Telephone Encounter - Dinah Alfaro RN - 07/29/2020 7:02 AM CDT Received approval for [employer] G6 sensors and transmitters x 07/28/21. documented in this encounter Plan of Treatment Not on file documented as of this encounter Visit Diagnoses Not on filedocumented in this encounter
--- OUTSIDE RECORDS SUMMARY | 2024-09-19 20:32 | XMS_ITS | Encounter Summary ---
Author Organization [facility] Address [address] [place] [address] Care Team Providers Care Feeder Operator Name Role Phone Arron Lucio MD Primary Care Provider [phone]- [phone] Unknown, Provider Primary Care Provider Unavaila ble Unknown, Provider Primary Care Provider Unavaila ble Reason for Visit * Reason Onset Date Comments Refill Request 02/17/2011 Mother needs sup plies from [employer] for the pump. She also needs Humalog vials from [employer] [phone]. Encounter Details Date Type Department Care Team (Late st Contact Info) Description 02/17/[address] [facility] Pediatrics - Endocrinology [address] [place] [place] [address] Rosalba Penaloza MD Refill Request (Mother needs supplies from [employer] for the pump. She also needs Humalog vials from [employer] [phone].) Social History Tobacco Use Types Packs/Day Years Used Date Smoking Tobacco: Passive Smo ke Exposure - Never Smoker Smokeless Tobacco: Never Alcohol Use Standard Drinks/Week Comments No 0 (1 standard drink = 0.6 oz pur e alcohol) Comments Unknown Sex and Gender Information Value Date Recorded Sex Assigned at Not on file Legal Sex Female 5:44 AM HAIR SAMPLE MATCHER Gender Identity Not on file Sexual Orientation Not on file documented as of this encounter Miscellaneous Notes * Telephone Encounter - Goldie Montgomery RN - 02/17/2011 2:49 PM CST I attempted to call Nish's mom regarding [employer] pump supplies. There was no answer. I left a message stating the order was faxed to [employer] on 02/15/11 at 1325. I instructed mom to call [facility] to verify the received the fax and if they did not to notify our office. I informed mom [facility] SAMPLE MATCHER documented in this encounter Plan of Treatment Not on file documented as of this encounter Visit Diagnoses Not on filedocumented in this encounter Care Teams Feeder Operator Relationship Specialty Start Date End Date Arron Lucio MD [address] [place] [address] PCP - General 06/04/09 02/20/13 Unknown, Provider [address] [place] [address] PCP - General 02/21/13 06/26/13 Unknown, Provider [address] [place] [address] PCP - General 08/14/13 08/15/13 documented as of this encounter
--- OUTSIDE RECORDS SUMMARY | 2024-09-19 20:32 | XMS_ITS | Encounter Summary ---
Author Organization [facility] Address [address] [place] [address] Care Team Providers Care Hospital Monitor Name Role Phone Unavailable Primary Care Provider Unavailabl e Reason for Visit * Reason Onset Date Comments MEDICATION REFILL 06/26/2015 Encounter Details Date Type Department Care Team (Late st Contact Info) Description 06/26/[address] [facility] Pediatrics - Diabetes [address] [place] [address] Jaime Crespo, DOPER OPERATOR-FLATLOCK SEWING MACHINE OPERATOR [address] [place] [address] MEDICATION REFILL Social History Tobacco Use Types Packs/Day Years Used Date Smoking Tobacco: Passive Smo ke Exposure - Never Smoker Smokeless Tobacco: Never Alcohol Use Standard Drinks/Week Comments No 0 (1 standard drink = 0.6 oz pur e alcohol) Comments No Sex and Gender Information Value Date Recorded Sex Assigned at Not on file Legal Sex Female 5:44 AM GENERAL WORKER Gender Identity Not on file Sexual Orientation [...]
--- OUTSIDE RECORDS SUMMARY | 2024-09-19 20:32 | XMS_ITS | Encounter Summary ---
Author Organization [facility] Address [address] [facility] [place] [address] Care Team Providers Care Emg Technician Name Role Phone Unavailable Primary Care Provider Unavailabl e Reason for Visit * Reason Onset Date Comments MEDICATION REFILL 06/19/2015 Encounter Details Date Type Department Care Team (Late st Contact Info) Description 06/19/[address] [facility] Pediatrics - Diabetes [id number] [place] [address] Jaime Crespo, LOLLYPOP MACHINE OPERATOR-MANAGER FRONT [address] [place] [address] MEDICATION REFILL Social History Tobacco Use Types Packs/Day Years Used Date Smoking Tobacco: Passive Smo ke Exposure - Never Smoker Smokeless Tobacco: Never Alcohol Use Standard Drinks/Week Comments No 0 (1 standard drink = 0.6 oz pur e alcohol) Comments No Sex and Gender Information Value Date Recorded Sex Assigned at Not on file Legal Sex Female 5:44 AM CRUSHING MACHINE OPERATOR Gender Identity Not on file Sexual Orientation Not on file documented as of this encounter Plan of Treatment Not on file documented as of this encounter Visit Diagnoses Not on filedocumented in this encounter
--- OUTSIDE RECORDS SUMMARY | 2024-09-19 20:32 | XMS_ITS | Clinical Summary ---
Author Organization [facility] Address [address] [place] [address] Care Team Providers Care Nuclear Auxiliary Operator Name Role Phone Unavailable Primary Care Provider Unavailabl e Source Comments [facility],non-owned Affiliates and Associated Physician Practices is amultiple site organization consisting of ambulatory clinics and hospital sitesin [place], [place], [place] and [place]. This disclosure is being madepursuant to the Care Everywhere program and may not contain all information available regarding this patient. Last updated 17.[facility] Allergies Active Allergy Reactions Criticality Noted Date [...] 6 08/20/19 18 Active Continuous Blood Gluc Pharmaceutical Analyst (FREESTYLE ALLISON READER) ZACHERY Use 1 device as directed 1 device 04/29/19 19 Active Continuous Blood Gluc Sensor (FREESTYLE ALLISON SENSOR SYSTEM) MISC Use 1 device every 14 days 2 Each 3 04/29/19 19 Active Continuous Blood Gluc Pharmaceutical Analyst (DEXCOM G6 HOMICIDE SQUAD LIEUTENANT) ZACHERY Use 1 Each as directed 1 [...] 07/23/19 21 Active Blood Glucose Monitoring Suppl ([employer] VERIO FLEX SYSTEM) w/Device KITIndications:Un controlled type [...] female with known T1DM who presented to [facility] for complaints of nausea/vomiting, ARANGO, tiredness, [...] female with known T1DM who presented to [facility] for complaints of nausea/vomiting, ARANGO, tiredness, [...] female with known T1DM who presented to [facility] for complaints of nausea/vomiting, ARANGO, tiredness, [...] mellitus 09/05/200903/2023 Overview (09/13/2022): Diagnosed 06/16/2004 at [facility] Transferred 05/26/2005 Insulin pump start 06/20/2007 Transferred back to [facility] in 02/2016 due to sibling diagnosis. Transferred to [facility] again on 06/29/17. Assessment & Plan (05/10/2023 6:34 PM CDT): Assessment: Nish Machado is a 17 year old year old female with known T1DM who presented to [facility] for complaints of , consistent with [...] Espinosa Assessment & Plan (04/09/2015 9:04 AM STEVEDORING SUPERINTENDENT): 1) Decrease lantus to 69 units 2) [...] sugars. Assessment & Plan (02/26/2013 1:31 PM STEVEDORING SUPERINTENDENT): 1) increase insulin to carb ratios to [...] on file Legal Sex Female 5:44 AM STEVEDORING SUPERINTENDENT Gender Identity Not on file Sexual Orientation [...] 9.1(H) <5.7 % 06/14/2023 9:19 AM CDT [facility] Estimated Average Glucose 214 mg/dL 06/14/2023 9:19 AM CDT [facility] Blood BLOOD SPECIMEN / Unknown 06/14/2023 9:07 AM CDT 06/14/2023 9:19 AM CDT Narrative [facility] - 06/14/2023 9:19 AM CDT [...] Standardization Program (NGSP) certified method. Ranjana Baum ROAD DESIGN DRAFTSPERSON-HOME SUPERVISOR LAB - POINT OF CARE ORD ERABLES Final Result Performing Organization Address City/State/[facility] Co de Phone Number [facility] [phone] * (ABNORMAL) BASIC METABOLIC PANEL (CALCIUM TOTAL) (05/11/2023 1:24 AM CDT) BUN 6(L) 7 - 26 mg/dL 05/11/2023 2:10 AM [facility] Creatinine 0.49(L) 0.56 - 0.96 mg/dL 05/11/2023 2:10 AM [facility] Sodium 131(L) 136 - 145 mmol/L 05/11/2023 2:10 AM [facility] Potassium 4.4 3.5 - 4.5 mmol/L 05/11/2023 2:10 AM [facility] Chloride 108(H) 98 - 107 mmol/L 05/11/2023 2:10 AM [facility] CO2 13(L) 22 - 29 mmol/L 05/11/2023 2:10 AM [facility] Glucose 237(H) 70 - 115 mg/dL 05/11/2023 2:10 AM [facility] Calcium 9.0 8.4 - 10.2 mg/dL 05/11/2023 2:10 AM [facility] Anion Gap 10 6 - 16 05/11/2023 2:10 AM [facility] BUN/Creatinine Ratio 12 7 - 23 05/11/2023 2:10 AM [facility] Osmolality Calculated 277 275 - 295 mOsm/kg 05/11/2023 2:10 AM [facility] eGFR by CKD-EPI >90 >=90 mL/min/1.7 3 m2 05/11/2023 2:10 AM [facility] Blood BLOOD SPECIMEN / Unknown Venipuncture / Unknown 05/11/2023 1:24 AM CDT 05/11/2023 1:28 AM CDT us Matheus Shook MD LAB - CHEMISTRY ORDERABLES Final Result [facility] [address] [place] [address], [facility] [phone] * MICROALB/CREAT RATIO URINE RANDOM PANEL (09/14/2022 10:37 AM CDT) Albumin Random Urine <5.0 Not Established ug/mL 09/14/2022 11:26 AM [facility] Creatinine Urine 59.40 Not Established mg/dL 09/14/2022 11:26 AM [facility] Urine Albumin/Creati nine Ratio <8 <30 mg/g 09/14/2022 11:26 AM [facility] Albumin/Creati nine Ratio Urine See Comment <30 mg/g 09/14/2022 11:26 AM [facility] Comment:Unable to calculate the Urine Albumin/Creatinine Ratio due to one or more analyte concentration(s) being outside the measuring limits of the instrument. Urine URINE SPECIMEN OBTAINED BY CLEAN CATCH PROCEDURE / Unknown Collection / Unknown 09/14/2022 10:37 AM CDT 09/14/2022 11:05 AM CDT us Radha Espinosa DO LAB - URINE CHEMISTRY ORDE RABEMMANUELLE Final Result [facility] [address] [place] [address], [facility] [phone] from Last 3 Months or Most Recently Relevant to Health Maintenance Insurance [facility] Advance Directives * Full Code (Latest Code Status on File) Date Activated Date Inactivated Comments 05/10/2023 6:53 PM 05/11/2023 6:52 PM
--- OUTSIDE RECORDS SUMMARY | 2024-09-19 20:32 | XMS_ITS | Encounter Summary ---
Author Organization [facility] Address [address] [facility] [place] [address] Care Team Providers Care Nurse Coordinator Name Role Phone Arron Lucio MD Primary Care Provider +1- [phone] Unknown, Provider Primary Care Provider Unavaila ble Unknown, Provider Primary Care Provider Unavaila ble Reason for Visit * Reason Onset Date Comments MEDICATION REFILL 07/04/2012 Encounter Details Date Type Department Care Team (Late st Contact Info) Description 07/04/2012 Refill [facility] Pediatrics - Endocrinology [address] [place] [address] Jaime Crespo, SHIRT IRONER-SPEEDOMETER MECHANIC [address] [place] [address] MEDICATION REFILL Social History Tobacco Use Types Packs/Day Years Used Date Smoking Tobacco: Passive Smo ke Exposure - Never Smoker Smokeless Tobacco: Never Alcohol Use Standard Drinks/Week Comments No 0 (1 standard drink = 0.6 oz pur e alcohol) Comments Unknown Sex and Gender Information Value Date Recorded Sex Assigned at Not on file Legal Sex Female 5:44 AM VALVE MACHINE OPERATOR Gender Identity Not on file [...] uncontrolled documented in this encounter Care Teams Nurse Coordinator Relationship Specialty Start Date End Date Arron Lucio MD [address] [place] [address] PCP - General 06/04/09 02/20/13 Unknown, Provider [address] [place] [address] PCP - General 02/21/13 06/26/13 Unknown, Provider [address] [place] [address] PCP - General 08/14/13 08/15/13 documented as of this encounter
--- OUTSIDE RECORDS SUMMARY | 2024-09-19 20:32 | XMS_ITS | Encounter Summary ---
Author Organization [facility] Address [address] [place] [address] Care Team Providers Care Survey Manager Name Role Phone Unavailable Primary Care Provider Unavailabl e Encounter Details Date Type Department Care Team (Late st Contact Info) Description 01/15/2021 Telephone [facility] Pediatrics - Diabetes Mgmt [address] [place] [address] Radha Espinosa, DO [address] [place] [address] Social History Tobacco Use Types Packs/Day Years [...] on file Legal Sex Female 5:44 AM HEAVY REPAIRER Gender Identity Not on file Sexual Orientation Not on file COVID-19 Exposure Response Date Recorded In the last month, have you been in contact with someone who was confirmed or suspected to have Coronavirus / COVID-19? No / Unsure 01/12/2021 10:43 AM HEAVY REPAIRER documented as of this encounter Miscellaneous Notes * Telephone Encounter - Anne Nails RN - 01/15/2021 11:27 AM HEAVY REPAIRER Mom called and updated that glucagon was switched to Gvoke d/t insurance. Explained steps to give Gvoke. All questions answered. Y REPAIRER * Telephone Encounter - Anne Nails RN - 01/15/2021 11:08 AM HEAVY REPAIRER Pharmacy called and asked if it was ok to switch glucagon rx to Gvoke d/t insurance request. Y REPAIRER documented in this encounter Plan of Treatment Not on file documented as of this encounter Visit Diagnoses Not on filedocumented in this encounter
--- OUTSIDE RECORDS SUMMARY | 2024-09-19 20:32 | XMS_ITS | Encounter Summary ---
Author Organization [facility] Address [address] [facility] [place] [address] Care Team Providers Care Non Licensed Nuclear Plant Operator Name Role Phone Unavailable Primary Care Provider Unavailabl e Encounter Details Date Type Department Care Team (Late st Contact Info) Description 04/20/2022 Telephone [facility] Pediatrics - Endocrinology [address] [place] [address] Radha Espinosa, DO [address] [place] [address] Social History Tobacco Use Types Packs/Day Years [...] on file Legal Sex Female 5:44 AM MOLD SHAKER Gender Identity Not on file Sexual Orientation Not on file documented as of this encounter Miscellaneous Notes * Telephone Encounter - Radha Espinosa DO - 04/20/2022 5:42 PM CDT I received notification from Dr. Zarina Gonzalez ([facility]) that Nish was seen today (04/20/22) and started Wegovy (see phone conversation dated yesterday). She provided Nish with my recommendations to monitor glucose closely. documented in this encounter Plan of Treatment Not on file documented as of this encounter Visit Diagnoses Not on filedocumented in this encounter
--- OUTSIDE RECORDS SUMMARY | 2024-09-19 20:32 | XMS_ITS | Encounter Summary ---
Author Organization [facility] Address [address] [facility] [place] [address] Care Team Providers Care Auto Body Detailer Name Role Phone Unavailable Primary Care Provider Unavailabl e Encounter Details Date Type Department Care Team (Late st Contact Info) Description 11/10/2022 Telephone [facility] Pediatrics - Diabetes Mgmt [address] [place] [address] Radha Espinosa, DO [address] [place] [address] Social History Tobacco Use Types Packs/Day Years [...] on file Legal Sex Female 5:44 AM SOLE TRIMMER Gender Identity Not on file Sexual Orientation [...]
--- OUTSIDE RECORDS SUMMARY | 2024-09-19 20:32 | XMS_ITS | Encounter Summary ---
Author Organization [facility] Address [address] [place] [address] Care Team Providers Care Electrophysiology Nurse Practitioner Name Role Phone Unavailable Primary Care Provider Unavailabl e Encounter Details Date Type Department Care Team (Late st Contact Info) Description 06/10/2020 Telephone [facility] Pediatrics - Diabetes [id number] [place] [address] Jaime Crespo, NISSA-BLAST FURNACE HELPER [address] [place] [address] Social History Tobacco Use Types Packs/Day Years [...] on file Legal Sex Female 5:44 AM QUARRY EXTRACTION WORKER Gender Identity Not on file Sexual [...] 06/10/2020 2:23 PM CDT Received approval for [employer] G6 x 1 month. Per approval letter, for further authorization provide more updated progress note. documented in this encounter Plan of Treatment Not on file documented as of this encounter Visit Diagnoses Not on filedocumented in this encounter
--- OUTSIDE RECORDS SUMMARY | 2024-09-19 20:32 | XMS_ITS | Encounter Summary ---
Author Organization [facility] Address [address] [facility] [place] [address] Care Team Providers Care Digital Asset Specialist Name Role Phone Unavailable Primary Care Provider Unavailabl e Encounter Details Date Type Department Care Team (Late st Contact Info) Description 05/18/[address] [facility] Pediatrics - Diabetes Mgmt [address] [place] [address] Radha Espinosa, DO [address] [place] [address] Social History Tobacco Use Types Packs/Day Years [...] on file Legal Sex Female 5:44 AM INTELLIGENCE APPLICATIONS Gender Identity Not on file Sexual Orientation Not on file documented as of this encounter Miscellaneous Notes * Telephone Encounter - Dinah Alfaro RN - 08/06/2021 4:04 PM CDT Received approval for [employer] sensors and transmitters from [place] through 08/06/22. * Telephone Encounter - Anne Nails RN - 08/03/2021 11:26 AM CDT Chart notes faxed to Tiffany Burgos at [phone] * Telephone Encounter - Marco Urbina - [...]
--- OUTSIDE RECORDS SUMMARY | 2024-09-19 20:32 | XMS_ITS | Encounter Summary ---
Author Organization [facility] Address [address] [facility] [place] [address] Care Team Providers Care Bellhop Name Role Phone Unavailable Primary Care Provider Unavailabl e Reason for Visit * Reason Onset Date Comments MEDICATION REFILL 03/23/2021 Encounter Details Date Type Department Care Team (Late st Contact Info) Description 03/23/2021 Refill [facility] Pediatrics - Diabetes [address] [address] Ranjana Baum, FENCE MAKING MACHINE OPERATOR-PROCESSES CHEMICAL DESIGN ENGINEER [address] [place] [phone] MEDICATION REFILL Social History Tobacco Use Types [...] on file Legal Sex Female 5:44 AM ASSEMBLY ROOM SUPERVISOR Gender Identity Not on file Sexual [...]
--- OUTSIDE RECORDS SUMMARY | 2024-09-19 20:32 | XMS_ITS | Encounter Summary ---
Author Organization [facility] Address [address] [facility] [place] [address] Care Team Providers Care Metal Machinist Name Role Phone Unavailable Primary Care Provider Unavailabl e Encounter Details Date Type Department Care Team (Late st Contact Info) Description 09/24/2019 Telephone [facility] Pediatrics - Diabetes [address] [place] [address] Jaime Crespo, NISSA-PREFORMER IMPREGNATED FABRICS [address] [place] [address] Social History Tobacco Use Types Packs/Day Years [...] on file Legal Sex Female 5:44 AM TRESTLEMAN Gender Identity Not on file Sexual Orientation [...]
--- OUTSIDE RECORDS SUMMARY | 2024-09-19 20:32 | XMS_ITS | Encounter Summary ---
Author Organization [facility] Address [address] [place] [address] Care Team Providers Care Boat Detailer Name Role Phone Unavailable Primary Care Provider Unavailabl e Reason for Visit * Reason Onset Date Comments Letter 09/04/2018 Encounter Details Date Type Department Care Team (Late st Contact Info) Description 09/04/2018 Telephone [facility] Pediatrics - Diabetes Mgmt [address] [place] [address] Radha Espinosa, [address] [address] Letter Social History Tobacco Use Types Packs/Day Years Used Date Smoking Tobacco: Passive Smo ke Exposure - Never Smoker Smokeless Tobacco: Never Alcohol Use Standard Drinks/Week Comments No 0 (1 standard drink = 0.6 oz pur e alcohol) Comments No Sex and Gender Information Value Date Recorded Sex Assigned at Not on file Legal Sex Female 5:44 AM FOOD PREPARATION SUPERVISOR Gender Identity Not on file Sexual Orientation Not on file documented as of this encounter Progress Notes * Renata Boateng RN - 09/22/2018 1:33 PM CDT [place] [facility] [place] [phone] documented in this encounter Miscellaneous Notes * Telephone Encounter - Ludwin uCrran RN - 09/22/2018 10:05 AM CDT I [...] - 09/04/2018 4:03 PM CDT Tiffany from [facility] in [place], [place] called to ask about getting a [...]
--- OUTSIDE RECORDS SUMMARY | 2024-09-19 20:32 | XMS_ITS | Encounter Summary ---
Author Organization [facility] Address [address] [facility] [place] [address] Care Team Providers Care Gravity Prospecting Observer Helper Name Role Phone Unavailable Primary Care Provider Unavailabl e Reason for Visit * Reason Onset Date Comments Medication Prior Auth Request 08/25/2018 Encounter Details Date Type Department Care Team (Late st Contact Info) Description 08/25/2018 Telephone [facility] Pediatrics - Diabetes Mgmt [address] [place] [address]. [place] [address] Radha Espinosa, [address] [address] Medication Prior Auth Request Social History Tobacco Use Types Packs/Day Years Used Date Smoking Tobacco: Passive Smo ke Exposure - Never Smoker Smokeless Tobacco: Never Alcohol Use Standard Drinks/Week Comments No 0 (1 standard drink = 0.6 oz pur e alcohol) Comments No Sex and Gender Information Value Date Recorded Sex Assigned at Not on file Legal Sex Female 5:44 AM DROP MAN Gender Identity Not on file Sexual Orientation Not on file documented as of this encounter Miscellaneous Notes * Telephone Encounter - Ludwin Curran RN - 08/29/2018 10:57 AM CDT I returned call to Tiffany, pharmacist at [facility] [phone], reports [facility] wants a more recent HgA1c to [facility] for Dexcom PA. Most recent A1C we [...]
--- OUTSIDE RECORDS SUMMARY | 2024-09-19 20:32 | XMS_ITS | Encounter Summary ---
Author Organization [facility] Address [address] [facility] [place] [address] Care Team Providers Care Traditional Chinese Herbalist Name Role Phone Unavailable Primary Care Provider Unavailabl e Encounter Details Date Type Department Care Team (Late st Contact Info) Description 09/27/2018 Telephone [facility] Pediatrics - Diabetes [address] [place] [address] Jaime Crespo, NISSA-MERCHANDISE ADJUSTMENT CLERK [address] [place] [address] Social History Tobacco Use Types Packs/Day Years Used Date Smoking Tobacco: Passive Smo ke Exposure - Never Smoker Smokeless Tobacco: Never Alcohol Use Standard Drinks/Week Comments No 0 (1 standard drink = 0.6 oz pur e alcohol) Comments No Sex and Gender Information Value Date Recorded Sex Assigned at Not on file Legal Sex Female 5:44 AM STRATEGIC PARTNERSHIP MANAGER Gender Identity Not on file Sexual Orientation Not on file documented as of this encounter Miscellaneous Notes * Telephone Encounter - Renata Boateng RN - 03/21/2019 2:16 PM STRATEGIC PARTNERSHIP MANAGER Called and checked on status of PA. Pharmacist at [facility] stated all went through insurance. Called family and updated TEGIC PARTNERSHIP MANAGER * Telephone Encounter - Renata Boateng RN - 03/19/2019 1:37 PM STRATEGIC PARTNERSHIP MANAGER Mother called office to alert that she needed PAs on humalog, lantus and Dexcom. Called [facility] to troubleshoot. Lantus is ready for pick up driver. Humalog and Dexcom required PAs. Verbal PA completed over the phone with [employer] specialist. Marked urgent. He stated that max time for PA decision would be 24 hours. He faxed specialty form to office for Dexcom. Will fill out and return fax today. TEGIC PARTNERSHIP MANAGER * Telephone Encounter - Renata Boateng RN - 10/03/2018 2:18 PM CDT Received PA approval for dexcom passenger booking clerk, transmitter and sensors from [facility] [employer]. documented in this encounter Plan of Treatment Not on file documented as of this encounter Visit Diagnoses Not on filedocumented in this encounter
--- OUTSIDE RECORDS SUMMARY | 2024-09-19 20:32 | XMS_ITS | Encounter Summary ---
Author Organization [facility] Address [address] [facility] [place] [address] Care Team Providers Care Collet Maker Name Role Phone Arron Lucio MD Primary Care Provider [phone]- [phone] Unknown, Provider Primary Care Provider Unavaila ble Unknown, Provider Primary Care Provider Unavaila ble Reason for Visit * Reason Onset Date Comments Refill Request 02/03/2011 Needs humalog vi als, lantus (just in case), test strips, lancets, glucagon , ketone strips. She said she needs refills on everything. [facility] [phone] Encounter Details Date Type Department Care Team (Late st Contact Info) Description 02/03/2011 Telephone [facility] Pediatrics - Endocrinology [address] [place] [address] Jaime Crespo, PRODUCT DEVELOPMENT ECOLOGIST-GEAR GRINDING MACHINE OPERATOR [address] [place] [id number] Refill Request (Needs humalog vials, lantus (just in case), test strips, lancets, glucagon , ketone strips. She said she needs refills on everything. [facility] [phone]) Social History Tobacco Use Types Packs/Day Years Used Date Smoking Tobacco: Passive Smo ke Exposure - Never Smoker Smokeless Tobacco: Never Alcohol Use Standard Drinks/Week Comments No 0 (1 standard drink = 0.6 oz pur e alcohol) Comments Unknown Sex and Gender Information Value Date Recorded Sex Assigned at Not on file Legal Sex Female 5:44 AM PATHOLOGY ASSISTANT Gender Identity Not on file Sexual Orientation Not on file documented as of this encounter Plan of Treatment Not on file documented as of this encounter Visit Diagnoses Not on filedocumented in this encounter Care Teams Collet Maker Relationship Specialty Start Date End Date Arron Lucio MD [address] [place] [address] PCP - General 06/04/09 02/20/13 Unknown, Provider [address] [place] [address] PCP - General 02/21/13 06/26/13 Unknown, Provider [address] [place] [address] PCP - General 08/14/13 08/15/13 documented as of this encounter
--- OUTSIDE RECORDS SUMMARY | 2024-09-19 20:32 | XMS_ITS | Encounter Summary ---
Author Organization [facility] Address [address] [facility] [place] [address] Care Team Providers Care Site Operations Manager Name Role Phone Arron Lucio MD Primary Care Provider [phone]- [phone] Unknown, Provider Primary Care Provider Unavaila ble Unknown, Provider Primary Care Provider Unavaila ble Reason for Visit * Reason Onset Date Comments Refill Request 06/27/2009 ketostrips, free style lite test strips #200, teest 5- 9x qd Encounter Details Date Type Department Care Team (Late st Contact Info) Description 06/27/2009 Telephone [facility] Pediatrics - Diabetes [address] [address] Rosalba Penaloza MD Refill Request (ketostrips, freestyle lite test strips #200, teest 5-9x qd) Social History Tobacco Use Types Packs/Day Years Used Date Smoking Tobacco: Never Assessed Comments Unknown Sex and Gender Information Value Date Recorded Sex Assigned at Not on file Legal Sex Female 5:44 AM RESTAURANT AREA MANAGER Gender Identity Not on file Sexual Orientation Not on file documented as of this encounter Plan of Treatment Not on file documented as of this encounter Visit Diagnoses Not on filedocumented in this encounter Care Teams Site Operations Manager Relationship Specialty Start Date End Date Arron Lucio MD [address] [place] [phone] PCP - General 06/04/09 02/20/13 Unknown, Provider [address] [place] [address] PCP - General 02/21/13 06/26/13 Unknown, Provider [address] [place] [address] PCP - General 08/14/13 08/15/13 documented as of this encounter
--- OUTSIDE RECORDS SUMMARY | 2024-09-19 20:32 | XMS_ITS | Encounter Summary ---
Author Organization [facility] Address [address] [facility] [place] [address] Care Team Providers Care Rv Repair Technician Name Role Phone Unavailable Primary Care Provider Unavailabl e Encounter Details Date Type Department Care Team (Late st Contact Info) Description 11/05/2021 Telephone [facility] Pediatrics - Diabetes [address] [place] [address] Radha Espinosa, DO [facility] [place] [address] Social History Tobacco Use Types Packs/Day Years [...] on file Legal Sex Female 5:44 AM PROFESSOR OF MUSICOLOGY Gender Identity Not on file Sexual Orientation [...] Physician is Dr. Jaime Armando out of [facility]. Office number is [phone]. Fax number is [phone]. Will route to Dr. Espinosa documented in this encounter Plan of Treatment Not on file documented as of this encounter Visit Diagnoses Not on filedocumented in this encounter
--- OUTSIDE RECORDS SUMMARY | 2024-09-19 20:32 | XMS_ITS | Encounter Summary ---
Author Organization [facility] Address [address] [facility] [place] [address] Care Team Providers Care Metalsmith Helper Name Role Phone Unavailable Primary Care Provider Unavailabl e Encounter Details Date Type Department Care Team (Late st Contact Info) Description 06/29/2017 Telephone [facility] Pediatrics - Diabetes [address] [address] Renata Boateng RN Social History Tobacco Use Types Packs/Day Years Used Date Smoking Tobacco: Passive Smo ke Exposure - Never Smoker Smokeless Tobacco: Never Alcohol Use Standard Drinks/Week Comments No 0 (1 standard drink = 0.6 oz pur e alcohol) Comments No Sex and Gender Information Value Date Recorded Sex Assigned at Not on file Legal Sex Female 5:44 AM BLEACHER LARD Gender Identity Not on file Sexual Orientation [...]
--- OUTSIDE RECORDS SUMMARY | 2024-09-19 20:32 | XMS_ITS | Encounter Summary ---
Author Organization [facility] Address [address] [facility] [place] [address] Care Team Providers Care Tray Worker Name Role Phone Unknown, Provider Primary Care Provider Unavaila ble Reason for Visit * Reason Onset Date Comments MEDICATION REFILL 08/14/2013 Encounter Details Date Type Department Care Team (Late st Contact Info) Description 08/14/2013 Refill [facility] Pediatrics - Diabetes [address] [address] Rosalba Penaloza MD MEDICATION REFILL Social History Tobacco Use Types Packs/Day Years Used Date Smoking Tobacco: Passive Smo ke Exposure - Never Smoker Smokeless Tobacco: Never Alcohol Use Standard Drinks/Week Comments No 0 (1 standard drink = 0.6 oz pur e alcohol) Comments No Sex and Gender Information Value Date Recorded Sex Assigned at Not on file Legal Sex Female 5:44 AM AIR CONDITIONING SERVICE TECHNICIAN Gender Identity Not on file Sexual [...] uncontrolled documented in this encounter Care Teams Tray Worker Relationship Specialty Start Date End Date Unknown, Provider PCP - General 08/14/13 08/15/13 documented as of this encounter
--- OUTSIDE RECORDS SUMMARY | 2024-09-19 20:32 | XMS_ITS | Encounter Summary ---
Author Organization [facility] Address [address] [facility] [place] [address] Care Team Providers Care Career Services Director Name Role Phone Unavailable Primary Care Provider Unavailabl e Reason for Visit * Reason Onset Date Comments Parent Return Call 01/15/2020 Encounter Details Date Type Department Care Team (Late st Contact Info) Description 01/15/2020 Telephone [facility] Pediatrics - Diabetes Mgmt [address] [place] [address]. [place] [address] Radha Espinosa, [address] [address] Parent Return Call Social History Tobacco Use [...] on file Legal Sex Female 5:44 AM PURCHASE REQUEST EDITOR Gender Identity Not on file Sexual Orientation Not on file COVID-19 Exposure Response Date Recorded In the last month, have you been in contact with someone who was confirmed or suspected to have Coronavirus / COVID-19? No / Unsure 12/18/2019 11:04 AM PURCHASE REQUEST EDITOR documented as of this encounter Miscellaneous Notes * Telephone Encounter - Eli Steven RN - 01/15/2020 2:30 PM CST [phone]. Mother called stating she spoke with Emily [...] Will send to Dr. Espinosa to approve. HASE REQUEST EDITOR documented in this encounter Plan of Treatment Not on file documented as of this encounter Visit Diagnoses Not on filedocumented in this encounter
[2024-09-19 20:39] LABS: Appearance Urine Cloudy (Clear)
[2024-09-19 20:40] LABS: Negative Monotest Control Negative (Negative); Positive Monotest Control Positive (Positive)
--- NOTE | 2024-09-19 20:50 | PC.NURSE ---
PATIENTS BLOOD GLUCOSE OF [address] POWERS
--- NOTE | 2024-09-19 21:00 | PC.NURSE ---
PATIENT IS RESTING ON STRETCHER. FAMILY AT HER SIDE. DENIES ANY NEEDS. CALL LIGHT IN REACH
--- NOTE | 2024-09-19 21:04 | PC.NURSE ---
DR POWERS GAVE VERBAL ORDER FOR NS 1 LITER.
--- NOTE | 2024-09-19 21:55 | PC.NURSE ---
NEW GLUCOSE RESULTS OBTAINED. DR POWERS NOTIFIED 269
[2024-09-19 22:19] VITALS: BP 128/84; PULSE 88; RESP 18; O2SAT 96
--- NOTE | 2024-09-23 12:28 | PC.NURSE ---
Preliminary urine culture report; growth observed, further testing in progress.
--- NOTE | 2024-09-27 13:29 | PC.NURSE ---
URINE CULTURE FINAL CC POSITIVE FOR MIXED UROGENITAL JAYNE PER DR RAY NO FURTHER ORDERS NEEDED
== END 2024-09-19 22:19 | disposition home or self-care (01) ==
PROVIDERS: Emergency Provider Internal Medicine Critical Care Medicine
DX: E10.65 Type 1 diabetes mellitus with hyperglycemia (principal); R10.13 Epigastric pain
CPT/HCPCS: 36415; 71045; 80053; 81001; 81025; 82948; 83605; 83690; 84100; 84484; 85025; 86308; 87086; 96361; 96374; 96375; 96376; 99284; J1815; J2765; J7030

== ENCOUNTER 2024-11-26 15:56 | Emergency (ER) | payer OTHER, SELFPAY ==
[2024-11-26 16:18] VITALS: BP 128/75; PULSE 130; RESP 20; TEMP 36.9; O2SAT 98
--- OUTSIDE RECORDS SUMMARY | 2024-11-26 18:27 | XMS_ITS | Encounter Summary ---
Author Organization [facility] Address [address] [facility] [place] [address] Care Team Providers Care Scientific Glass Blower Name Role Phone Unavailable Primary Care Provider Unavailabl e Reason for Visit * Reason Onset Date Comments Parent Return Call 01/15/2020 Encounter Details Date Type Department Care Team (Late st Contact Info) Description 01/15/2020 Telephone [facility] Pediatrics - Diabetes Mgmt [address] [place] [address]. [place] [address] Radha Espinosa, [address] [address] Parent Return Call Social History Tobacco Use [...] on file Legal Sex Female 5:44 AM CHICKEN HANDLER Gender Identity Not on file Sexual Orientation Not on file COVID-19 Exposure Response Date Recorded In the last month, have you been in contact with someone who was confirmed or suspected to have Coronavirus / COVID-19? No / Unsure 12/18/2019 11:04 AM CHICKEN HANDLER documented as of this encounter Miscellaneous Notes * Telephone Encounter - Eli Steven RN - 01/15/2020 2:30 PM CST [phone]. Mother called stating she spoke with Emily [...] Will send to Dr. Espinosa to approve. KEN HANDLER documented in this encounter Plan of Treatment Not on file documented as of this encounter Visit Diagnoses Not on filedocumented in this encounter
--- OUTSIDE RECORDS SUMMARY | 2024-11-26 18:27 | XMS_ITS | Encounter Summary ---
Author Organization [facility] Address [address] [facility] [place] [address] Care Team Providers Care Deburrer Strip Name Role Phone Unavailable Primary Care Provider Unavailabl e Encounter Details Date Type Department Care Team (Late st Contact Info) Description 06/29/2017 Telephone [facility] Pediatrics - Diabetes [address] [address] Renata Boateng RN Social History Tobacco Use Types Packs/Day Years Used Date Smoking Tobacco: Passive Smo ke Exposure - Never Smoker Smokeless Tobacco: Never Alcohol Use Standard Drinks/Week Comments No 0 (1 standard drink = 0.6 oz pur e alcohol) Comments No Sex and Gender Information Value Date Recorded Sex Assigned at Not on file Legal Sex Female 5:44 AM TRANSCRIBING MACHINE OPERATOR Gender Identity Not on file [...]
--- OUTSIDE RECORDS SUMMARY | 2024-11-26 18:27 | XMS_ITS | Encounter Summary ---
Author Organization [facility] Address [address] [place] [address] Care Team Providers Care Plumber Supervisor Name Role Phone Unavailable Primary Care Provider Unavailabl e Encounter Details Date Type Department Care Team (Late st Contact Info) Description 11/10/2022 Telephone [facility] Pediatrics - Diabetes Mgmt [address] [place] [address] Radha Espinosa, DO [address] [place] [address] Social History Tobacco Use Types Packs/Day Years [...] on file Legal Sex Female 5:44 AM PUBLICATIONS INSPECTOR Gender Identity Not on file Sexual Orientation [...]
--- OUTSIDE RECORDS SUMMARY | 2024-11-26 18:27 | XMS_ITS | Encounter Summary ---
Author Organization [facility] Address [address] [place] [address] Care Team Providers Care Metal Turner Name Role Phone Unavailable Primary Care Provider Unavailabl e Encounter Details Date Type Department Care Team (Late st Contact Info) Description 01/15/2021 Telephone [facility] Pediatrics - Diabetes Mgmt [address] [place] [address] Radha Espinosa, DO [address] [place] [address] Social History Tobacco Use Types Packs/Day Years [...] on file Legal Sex Female 5:44 AM TITLE I COORDINATOR Gender Identity Not on file Sexual Orientation Not on file COVID-19 Exposure Response Date Recorded In the last month, have you been in contact with someone who was confirmed or suspected to have Coronavirus / COVID-19? No / Unsure 01/12/2021 10:43 AM TITLE I COORDINATOR documented as of this encounter Miscellaneous Notes * Telephone Encounter - Anne Nails RN - 01/15/2021 11:27 AM TITLE I COORDINATOR Mom called and updated that glucagon was switched to [place] d/t insurance. Explained steps to give Gvoke. All questions answered. E I COORDINATOR * Telephone Encounter - Anne Nails RN - 01/15/2021 11:08 AM TITLE I COORDINATOR Pharmacy called and asked if it was ok to switch glucagon rx to [place] d/t insurance request. E I COORDINATOR documented in this encounter Plan of Treatment Not on file documented as of this encounter Visit Diagnoses Not on filedocumented in this encounter
--- OUTSIDE RECORDS SUMMARY | 2024-11-26 18:27 | XMS_ITS | Encounter Summary ---
Author Organization [facility] Address [address] [facility] [place] [address] Care Team Providers Care Electrical Sign Servicer Name Role Phone Unavailable Primary Care Provider Unavailabl e Reason for Visit * Reason Onset Date Comments Blood Sugar Problem 11/26/2014 Encounter Details Date Type Department Care Team (Late st Contact Info) Description 11/26/2014 Telephone [facility] Pediatrics - Diabetes [id number] [place] [address] Kiana Villela, IMPREGNATOR HELPER-ASBESTOS MICROSCOPIST Retired Blood Sugar Problem Social History Tobacco Use Types Packs/Day Years Used Date Smoking Tobacco: Passive Smo ke Exposure - Never Smoker Smokeless Tobacco: Never Alcohol Use Standard Drinks/Week Comments No 0 (1 standard drink = 0.6 oz pur e alcohol) Comments No Sex and Gender Information Value Date Recorded Sex Assigned at Not on file Legal Sex Female 5:44 AM CLINIC DIRECTOR Gender Identity Not on file Sexual Orientation Not on file documented as of this encounter Miscellaneous Notes * Telephone Encounter - Ludwin Curran RN - 11/26/2014 8:54 AM CDT Diabetes Sick Call Patient: Nish Machado Date: 11/26/2014 Mom called professor of industrial technology line and I was given message at [...] and scenarios that warrant an immediate call. IC DIRECTOR documented in this encounter Plan of Treatment Not on file documented as of this encounter Visit Diagnoses Not on filedocumented in this encounter
--- OUTSIDE RECORDS SUMMARY | 2024-11-26 18:27 | XMS_ITS | Encounter Summary ---
Author Organization [facility] Address [address] [place] [address] Care Team Providers Care Envelope Maker Name Role Phone Mo Vora MD Primary Care Provi alida Encounter Details Date Type Department Care Team (Late st Contact Info) Description 09/28/2024 Telephone [facility] Primary Care at [address] [place] [address] Mo Vora MD [address] [facility] [address] [place] [address] Social History Tobacco Use Types Packs/Day Years Used Date Smoking Tobacco: Every Day Vaping Smokeless Tobacco: Never AUDIT-C Answer Date Recorded Q1: How often [...] making you feel afraid or unsafe? Denies 10/01/2024 Comments No Sex and Gender Information Value Date Recorded Sex Assigned at Not on file Legal Sex Female 6:42 AM OUTSIDE RIGGER Gender Identity Not on file Sexual Orientation Not on file documented as of this encounter Plan of Treatment Not on file documented as of this encounter Visit Diagnoses Not on filedocumented in this encounter Care Teams Envelope Maker Relationship Specialty Start Date End Date Mo Vora MD [address] [address] PCP - General Family Practice 09/21/23 documented as of this encounter
--- OUTSIDE RECORDS SUMMARY | 2024-11-26 18:27 | XMS_ITS | Encounter Summary ---
Author Organization [facility] Address [address] [facility] [place] [address] Care Team Providers Care Hair Preparer Name Role Phone Unavailable Primary Care Provider Unavailabl e Encounter Details Date Type Department Care Team (Late st Contact Info) Description 07/29/2020 Telephone [facility] Pediatrics - Diabetes Mgmt [address] [place] [address] Radha Espinosa, DO [address] [place] [address] Social History Tobacco Use Types Packs/Day Years [...] on file Legal Sex Female 5:44 AM DESK REPRESENTATIVE Gender Identity Not on file Sexual Orientation Not on file documented as of this encounter Miscellaneous Notes * Telephone Encounter - Dinah Alfaro RN - 07/29/2020 7:02 AM CDT Received approval for [employer] G6 sensors and transmitters x 07/28/21. documented in this encounter Plan of Treatment Not on file documented as of this encounter Visit Diagnoses Not on filedocumented in this encounter
--- OUTSIDE RECORDS SUMMARY | 2024-11-26 18:27 | XMS_ITS | Encounter Summary ---
Author Organization [facility] Address [address] [place] [address] Care Team Providers Care Furnace Brazer Name Role Phone Mo Vora MD Primary Care Provi alida Reason for Visit * Reason Onset Date Comments vaginal cyst 11/26/2024 Encounter Details Date Type Department Care Team (Late st Contact Info) Description 11/26/2024 Nurse Triage [facility] Primary Care at [address] [address] Mo Vora MD [address] [place] [address] Social History Tobacco Use Types Packs/Day [...] PHQ-2 Answer Date Recorded PHQ-2 Total Score 0 10/16/2024 PHQ-9 Answer Date Recorded PHQ-9 Total Score 0 10/16/2024 Personal Safety Answer Date Recorded Have you ever been in or are you currently in a harmful physical or emotional relationship or is someone making you feel afraid or unsafe? Denies 10/01/2024 Comments No Sex and Gender Information Value Date Recorded Sex Assigned at Not on file Legal Sex Female 6:42 AM INSPECTOR DIALS Gender Identity Not on file Sexual Orientation Not on file documented as of this encounter Miscellaneous Notes * Telephone Encounter - Ginna Larson RN - 11/26/2024 3:05 PM CDT Patient called with C/O cyst in vaginal area that is painful for the past 2 days. Denies fever/chills. Denies injury. Denies drainage. Rates her pain as severe. She has applied Prid, warm compresses,tea bags. She has taken Tylenol. No appt in the office today. She will go to ER. Care Advice Given: Have someone drive you Educated to call back if worsens, new symptoms develop or has further questions or concerns. Regarding: Golf ball sized cyst in vaginal area causing severe pain ----- Message from Kiley Mota sent at 11/26/2024 3:03 PM CDT ----- Symptom Based Call Chief Complaint(s): Golf ball sized cyst in vaginal area causing severe pain Duration: 2 days What type of symptom(s) is the patient experiencing? Red Flag. Is the patient concerned they are experiencing a medical emergency requiring an ambulance? No Additional Comments: The patient is having severe pain from a cyst that will not pop in her vaginalarea. She said it is the size of a golf ball or larger. She has tried Prid, Vinegar baths, bleach and said nothing is working. She would like advice on what to do next. Does message need to be routed? Yes-Action Needed documented in this encounter Plan of Treatment Not on file documented as of this encounter Visit Diagnoses Not on filedocumented in this encounter Care Teams Furnace Brazer Relationship Specialty Start Date End Date Mo Vora MD [address] [facility] [address] [place] [address] PCP - General Family Practice 09/21/23 documented as of this encounter
--- OUTSIDE RECORDS SUMMARY | 2024-11-26 18:27 | XMS_ITS | Encounter Summary ---
Author Organization [facility] Address [address] [place] [address] Care Team Providers Care Hydraulic And Plumbing Installer Name Role Phone Arron Lucio MD Primary Care Provider [phone] Unknown, Provider Primary Care Provider Unavaila ble Unknown, Provider Primary Care Provider Unavaila ble Reason for Visit * Reason Onset Date Comments Refill Request 02/17/2011 Mother needs sup plies from [place] for the pump. She also needs Humalog vials from [employer] [phone]. Encounter Details Date Type Department Care Team (Late st Contact Info) Description 02/17/2011 Telephone [facility] Pediatrics - Endocrinology [address] [facility] [place] [address] Rosalba Penaloza MD Refill Request (Mother needs supplies from [place] for the pump. She also needs Humalog vials from [employer] [phone].) Social History Tobacco Use Types Packs/Day Years Used Date Smoking Tobacco: Passive Smo ke Exposure - Never Smoker Smokeless Tobacco: Never Alcohol Use Standard Drinks/Week Comments No 0 (1 standard drink = 0.6 oz pur e alcohol) Comments Unknown Sex and Gender Information Value Date Recorded Sex Assigned at Not on file Legal Sex Female 5:44 AM PROGRAM ELIGIBILITY SPECIALIST Gender Identity Not on file Sexual Orientation Not on file documented as of this encounter Miscellaneous Notes * Telephone Encounter - Goldie Montgomery RN - 02/17/2011 2:49 PM CST I attempted to call Nish's mom regarding [place] pump supplies. There was no answer. I left a message stating the order was faxed to [employer] on 02/15/11 at 1325. I instructed mom to call [place] to verify the received the fax and if they did not to notify our office. I informed mom [facility] RAM ELIGIBILITY SPECIALIST documented in this encounter Plan of Treatment Not on file documented as of this encounter Visit Diagnoses Not on filedocumented in this encounter Care Teams Hydraulic And Plumbing Installer Relationship Specialty Start Date End Date Arron Lucio MD [address] [place] [address] PCP - General 06/04/09 02/20/13 Unknown, Provider [address] [place] [address] PCP - General 02/21/13 06/26/13 Unknown, Provider [address] [place] [address] PCP - General 08/14/13 08/15/13 documented as of this encounter
--- OUTSIDE RECORDS SUMMARY | 2024-11-26 18:27 | XMS_ITS | Encounter Summary ---
Author Organization [facility] Address [address] [facility] [place] [address] Care Team Providers Care Assembler Type Bar And Segment Name Role Phone Unknown, Provider Primary Care Provider Unavaila ble Reason for Visit * Reason Onset Date Comments MEDICATION REFILL 08/14/2013 Encounter Details Date Type Department Care Team (Late st Contact Info) Description 08/14/2013 Refill [facility] Pediatrics - Diabetes [address] [address] Rosalba Penaloza MD MEDICATION REFILL Social History Tobacco Use Types Packs/Day Years Used Date Smoking Tobacco: Passive Smo ke Exposure - Never Smoker Smokeless Tobacco: Never Alcohol Use Standard Drinks/Week Comments No 0 (1 standard drink = 0.6 oz pur e alcohol) Comments No Sex and Gender Information Value Date Recorded Sex Assigned at Not on file Legal Sex Female 5:44 AM TURRET LATHE OPERATOR Gender Identity Not on file Sexual [...] uncontrolled documented in this encounter Care Teams Assembler Type Bar And Segment Relationship Specialty Start Date End Date Unknown, Provider PCP - General 08/14/13 08/15/13 documented as of this encounter
--- OUTSIDE RECORDS SUMMARY | 2024-11-26 18:27 | XMS_ITS | Encounter Summary ---
Author Organization [facility] Address [address] [place] [address] Care Team Providers Care Flight Dynamicist Name Role Phone Unavailable Primary Care Provider Unavailabl e Encounter Details Date Type Department Care Team (Late st Contact Info) Description 09/27/2018 Telephone [facility] Pediatrics - Diabetes [address] [place] [address] Jaime Crespo, NISSA-OVERHAULER [address] TR[address] [place] [address] Social History Tobacco Use Types Packs/Day Years Used Date Smoking Tobacco: Passive Smo ke Exposure - Never Smoker Smokeless Tobacco: Never Alcohol Use Standard Drinks/Week Comments No 0 (1 standard drink = 0.6 oz pur e alcohol) Comments No Sex and Gender Information Value Date Recorded Sex Assigned at Not on file Legal Sex Female 5:44 AM PROJECT ENGINEER Gender Identity Not on file Sexual Orientation Not on file documented as of this encounter Miscellaneous Notes * Telephone Encounter - Renata Boateng RN - 03/21/2019 2:16 PM PROJECT ENGINEER Called and checked on status of PA. Pharmacist at [facility] stated all went through insurance. Called family and updated ECT ENGINEER * Telephone Encounter - Renata Boateng RN - 03/19/2019 1:37 PM PROJECT ENGINEER Mother called office to alert that she needed PAs on humalog, lantus and Dexcom. Called [facility] to troubleshoot. Lantus is ready for bean picker machine operator. Humalog and Dexcom required PAs. Verbal PA completed over the phone with [employer] specialist. Marked urgent. He stated that max time for PA decision would be 24 hours. He faxed specialty form to office for Dexcom. Will fill out and return fax today. ECT ENGINEER * Telephone Encounter - Renata Boateng RN - 10/03/2018 2:18 PM CDT Received PA approval for dexcom clinical trial leader, transmitter and sensors from [facility] [employer]. documented in this encounter Plan of Treatment Not on file documented as of this encounter Visit Diagnoses Not on filedocumented in this encounter
--- OUTSIDE RECORDS SUMMARY | 2024-11-26 18:27 | XMS_ITS | Encounter Summary ---
Author Organization [facility] Address [address] [facility] [place] [address] Care Team Providers Care Fishing Tool Supervisor Name Role Phone Unavailable Primary Care Provider Unavailabl e Encounter Details Date Type Department Care Team (Late st Contact Info) Description 11/05/2021 Telephone [facility] Pediatrics - Diabetes [address] [place] [address] Radha Espinosa, DO [facility] [place] [address] Social History Tobacco Use Types Packs/Day Years [...] on file Legal Sex Female 5:44 AM SCREENING NURSE Gender Identity Not on file Sexual Orientation [...] Physician is Dr. Jaime Armando out of [facility]. Office number is [phone]. Fax number is [phone]. Will route to Dr. Espinosa documented in this encounter Plan of Treatment Not on file documented as of this encounter Visit Diagnoses Not on filedocumented in this encounter
--- OUTSIDE RECORDS SUMMARY | 2024-11-26 18:27 | XMS_ITS | Encounter Summary ---
Author Organization [facility] Address [address] [place] [address] Care Team Providers Care Aurist Name Role Phone Unavailable Primary Care Provider Unavailabl e Reason for Visit * Reason Onset Date Comments MEDICATION REFILL 06/19/2015 Encounter Details Date Type Department Care Team (Late st Contact Info) Description 06/19/2015 Refill [facility] Pediatrics - Diabetes [address] [place] [address] Jaime Crespo, RAT EXTERMINATOR-CADMIUM LIQUOR MAKER [address] [place] [address] MEDICATION REFILL Social History Tobacco Use Types Packs/Day Years Used Date Smoking Tobacco: Passive Smo ke Exposure - Never Smoker Smokeless Tobacco: Never Alcohol Use Standard Drinks/Week Comments No 0 (1 standard drink = 0.6 oz pur e alcohol) Comments No Sex and Gender Information Value Date Recorded Sex Assigned at Not on file Legal Sex Female 5:44 AM FINANCIAL SERVICES AUDITOR Gender Identity Not on file Sexual Orientation Not on file documented as of this encounter Plan of Treatment Not on file documented as of this encounter Visit Diagnoses Not on filedocumented in this encounter
--- OUTSIDE RECORDS SUMMARY | 2024-11-26 18:27 | XMS_ITS | Encounter Summary ---
Author Organization [facility] Address [address] [facility] [place] [address] Care Team Providers Care Auto Tire Recapper Name Role Phone Unavailable Primary Care Provider Unavailabl e Encounter Details Date Type Department Care Team (Late st Contact Info) Description 09/24/2019 Telephone [facility] Pediatrics - Diabetes [address] [place] [address] Jaime Crespo, NISSA-ASSEMBLER [employer] [address] [place] [address] Social History Tobacco Use Types Packs/Day Years [...] on file Legal Sex Female 5:44 AM CURBING STONECUTTER Gender Identity Not on file Sexual Orientation [...]
--- OUTSIDE RECORDS SUMMARY | 2024-11-26 18:27 | XMS_ITS | Encounter Summary ---
Author Organization [facility] Address [address] [facility] [place] [address] Care Team Providers Care Production Trainer Name Role Phone Unavailable Primary Care Provider Unavailabl e Encounter Details Date Type Department Care Team (Late st Contact Info) Description 04/20/2022 Telephone [facility] Pediatrics - Endocrinology [address] [place] [address] Radha Espinosa, DO [address] [place] [address] Social History Tobacco Use Types Packs/Day Years [...] on file Legal Sex Female 5:44 AM TUBE REBUILDER Gender Identity Not on file Sexual Orientation Not on file documented as of this encounter Miscellaneous Notes * Telephone Encounter - Radha Espinosa DO - 04/20/2022 5:42 PM CDT I received notification from Dr. Zarina Gonzalez (REPLACED BY [facility]) that Nish was seen today (04/20/22) and started Wegovy (see phone conversation dated yesterday). She provided Nish with my recommendations to monitor glucose closely. documented in this encounter Plan of Treatment Not on file documented as of this encounter Visit Diagnoses Not on filedocumented in this encounter
--- OUTSIDE RECORDS SUMMARY | 2024-11-26 18:27 | XMS_ITS | Encounter Summary ---
Author Organization [facility] Address [address] [place] [address] Care Team Providers Care Institutional Nutrition Consultant Name Role Phone Unavailable Primary Care Provider Unavailabl e Reason for Visit * Reason Onset Date Comments MEDICATION REFILL 03/23/2021 Encounter Details Date Type Department Care Team (Late st Contact Info) Description 03/23/2021 Refill [facility] Pediatrics - Diabetes [address] [address] Ranjana Baum, LOADING MANAGER-SILVER SPRAY WORKER [address] [place] [phone] MEDICATION REFILL Social History Tobacco Use Types [...] on file Legal Sex Female 5:44 AM BISQUE TILE BURNER Gender Identity Not on file Sexual Orientation [...]
--- OUTSIDE RECORDS SUMMARY | 2024-11-26 18:27 | XMS_ITS | Encounter Summary ---
Author Organization [facility] Address [address] [facility] [place] [address] Care Team Providers Care Whitesmith Name Role Phone Unavailable Primary Care Provider Unavailabl e Reason for Visit * Reason Onset Date Comments Letter 09/04/2018 Encounter Details Date Type Department Care Team (Late st Contact Info) Description 09/04/2018 Telephone [facility] Pediatrics - Diabetes Mgmt [address] [place] [address] Radha Espinosa, [address] [address] Letter Social History Tobacco Use Types Packs/Day Years Used Date Smoking Tobacco: Passive Smo ke Exposure - Never Smoker Smokeless Tobacco: Never Alcohol Use Standard Drinks/Week Comments No 0 (1 standard drink = 0.6 oz pur e alcohol) Comments No Sex and Gender Information Value Date Recorded Sex Assigned at Not on file Legal Sex Female 5:44 AM DEMAND PLANNING MANAGER Gender Identity Not on file Sexual Orientation Not on file documented as of this encounter Progress Notes * Renata Boateng RN - 09/22/2018 1:33 PM CDT Faxed progress note to Tiffany with [facility]. [phone] documented in this encounter Miscellaneous Notes * [...] - 09/04/2018 4:03 PM CDT Tiffany from [facility] in [place], [place] called to ask about getting a [...]
--- OUTSIDE RECORDS SUMMARY | 2024-11-26 18:27 | XMS_ITS | Encounter Summary ---
Author Organization [facility] Address [address] [facility] [place] [address] Care Team Providers Care Side Stitcher Name Role Phone Unavailable Primary Care Provider Unavailabl e Encounter Details Date Type Department Care Team (Late st Contact Info) Description 06/10/2020 Telephone [facility] Pediatrics - Diabetes [address] [place] [address] Jaime Crespo, NISSA-CARD CUTTER [address] [place] [address] Social History Tobacco Use Types Packs/Day Years [...] on file Legal Sex Female 5:44 AM TERMITE RENEWAL INSPECTOR Gender Identity Not on file Sexual [...] 06/10/2020 2:23 PM CDT Received approval for [employer] G[employer] x 1 month. Per approval letter, for further authorization provide more updated progress note. documented in this encounter Plan of Treatment Not on file documented as of this encounter Visit Diagnoses Not on filedocumented in this encounter
--- OUTSIDE RECORDS SUMMARY | 2024-11-26 18:27 | XMS_ITS | Encounter Summary ---
Author Organization [facility] Address [address] [place] [address] Care Team Providers Care Underwriting Internship Name Role Phone Unavailable Primary Care Provider Unavailabl e Reason for Visit * Reason Onset Date Comments MEDICATION REFILL 06/26/2015 Encounter Details Date Type Department Care Team (Late st Contact Info) Description 06/26/2015 Refill [facility] Pediatrics - Diabetes [address] [place] [address] Jaime Crespo, AUDITING MANAGER-REAL ESTATE OFFICE MANAGER [address] [place] [address] MEDICATION REFILL Social History Tobacco Use Types Packs/Day Years Used Date Smoking Tobacco: Passive Smo ke Exposure - Never Smoker Smokeless Tobacco: Never Alcohol Use Standard Drinks/Week Comments No 0 (1 standard drink = 0.6 oz pur e alcohol) Comments No Sex and Gender Information Value Date Recorded Sex Assigned at Not on file Legal Sex Female 5:44 AM WATCH CRYSTAL EDGE GRINDER Gender Identity Not on file Sexual Orientation [...]
--- OUTSIDE RECORDS SUMMARY | 2024-11-26 18:27 | XMS_ITS | Clinical Summary ---
Author Organization [facility] [facility] Address [address] [facility] [address] [place] [address] Care Team Providers Care Auto Dismantler Name Role Phone Unavailable Primary Care Provider Unavailabl e Source Comments [facility],non-owned Affiliates and Associated Physician Practices is amultiple site organization consisting of ambulatory clinics and hospital sitesin [place], [place], [place] and [place]. This disclosure is being madepursuant to the Care Everywhere program and may not contain all information available regarding this patient. Last updated 17.[facility] Allergies Active Allergy Reactions Criticality Noted Date [...] 6 08/20/19 18 Active Continuous Blood Gluc Lead Software Test Engineer (FREESTYLE ALLISON READER) ZACHERY Use 1 device as directed 1 device 04/29/19 19 Active Continuous Blood Gluc Sensor (FREESTYLE ALLISON SENSOR SYSTEM) MISC Use 1 device every 14 days 2 Each 3 04/29/19 19 Active Continuous Blood Gluc Lead Software Test Engineer (DEXCOM G6 STONE POLISHER HAND) ZACHERY Use 1 Each as directed 1 [...] 07/23/19 21 Active Blood Glucose Monitoring Suppl (Expert Dynamics VERIO FLEX SYSTEM) w/Device KITIndications:Un controlled type [...] female with known T1DM who presented to [facility] ED for complaints of nausea/vomiting, ARANGO, tiredness, [...] female with known T1DM who presented to [facility] ED for complaints of nausea/vomiting, ARANGO, tiredness, [...] female with known T1DM who presented to [facility] ED for complaints of nausea/vomiting, ARANGO, tiredness, [...] mellitus 09/05/200903/2023 Overview (09/13/2022): Diagnosed 06/16/2004 at [facility] Transferred 05/26/2005 Insulin pump start 06/20/2007 Transferred back to [facility] in 02/2016 due to sibling diagnosis. Transferred to [facility] again on 06/29/17. Assessment & Plan (05/10/2023 6:34 PM CDT): Assessment: Nihs Machado is a 17 year old year old female with known T1DM who presented to [facility] ED for complaints of , consistent with [...] Espinosa Assessment & Plan (04/09/2015 9:04 AM MANAGER IMAGE): 1) Decrease lantus to 69 units 2) [...] sugars. Assessment & Plan (02/26/2013 1:31 PM MANAGER IMAGE): 1) increase insulin to carb ratios to [...] on file Legal Sex Female 5:44 AM MANAGER IMAGE Gender Identity Not on file Sexual Orientation [...] 09/14/2023 06/14/2023, , 09/14/2022, Additional history exists DEPRESSION SCREENING 02/08/2024 03/29/2022 DIABETES - URINE PROTEIN SCREENING 02/08/2024 09/14/2022, 06/12/2020, 01/02/2019, Additional history exists PAP SMEAR 07/15/2024 DIABETES-SERUM CREATININE 07/21/20242023, 05/11/2023, 05/11/2023, Additional history exists COVID-19 VACCINE (2 - season) 2024 01/27/2021 INFLUENZA VACCINE (#1) 2024 01/02/2019, 2013 ZOSTER [...] 9.1(H) <5.7 % 06/14/2023 9:19 AM CDT [facility] Estimated Average Glucose 214 mg/dL 06/14/2023 9:19 AM CDT [facility] Blood BLOOD SPECIMEN / Unknown 06/14/2023 9:07 AM CDT 06/14/2023 9:19 AM CDT Narrative [facility] - 06/14/2023 9:19 AM CDT [...] Standardization Program (NGSP) certified method. Ranjana Baum CIGAR PACKING EXAMINER-RANGER AIDE LAB - POINT OF CARE ORD ERABLES Final Result Performing Organization Address City/State/[facility] Co de Phone Number [facility] [phone] * (ABNORMAL) BASIC METABOLIC PANEL (CALCIUM TOTAL) (05/11/2023 1:24 AM CDT) BUN 6(L) 7 - 26 mg/dL 05/11/2023 2:10 AM [facility] Creatinine 0.49(L) 0.56 - 0.96 mg/dL 05/11/2023 2:10 AM [facility] Sodium 131(L) 136 - 145 mmol/L 05/11/2023 2:10 AM [facility] Potassium 4.4 3.5 - 4.5 mmol/L 05/11/2023 2:10 AM [facility] Chloride 108(H) 98 - 107 mmol/L 05/11/2023 2:10 AM [facility] CO2 13(L) 22 - 29 mmol/L 05/11/2023 2:10 AM [facility] Glucose 237(H) 70 - 115 mg/dL 05/11/2023 2:10 AM [facility] Calcium 9.0 8.4 - 10.2 mg/dL 05/11/2023 2:10 AM [facility] Anion Gap 10 6 - 16 05/11/2023 2:10 AM [facility] BUN/Creatinine Ratio 12 7 - 23 05/11/2023 2:10 AM [facility] Osmolality Calculated 277 275 - 295 mOsm/kg 05/11/2023 2:10 AM [facility] eGFR by CKD-EPI >90 >=90 mL/min/1.7 3 m2 05/11/2023 2:10 AM [facility] Blood BLOOD SPECIMEN / Unknown Venipuncture / Unknown 05/11/2023 1:24 AM CDT 05/11/2023 1:28 AM CDT us Matheus Shook MD LAB - CHEMISTRY ORDERABLES Final Result [facility] [address] [place] [address], [facility] [phone] * MICROALB/CREAT RATIO URINE RANDOM PANEL (09/14/2022 10:37 AM CDT) Albumin Random Urine <5.0 Not Established ug/mL 09/14/2022 11:26 AM [facility] Creatinine Urine 59.40 Not Established mg/dL 09/14/2022 11:26 AM [facility] Urine Albumin/Creati nine Ratio <8 <30 mg/g 09/14/2022 11:26 AM [facility] Albumin/Creati nine Ratio Urine See Comment <30 mg/g 09/14/2022 11:26 AM [facility] Comment:Unable to calculate the Urine Albumin/Creatinine Ratio due to one or more analyte concentration(s) being outside the measuring limits of the instrument. Urine URINE SPECIMEN OBTAINED BY CLEAN CATCH PROCEDURE / Unknown Collection / Unknown 09/14/2022 10:37 AM CDT 09/14/2022 11:05 AM CDT us Radha Epsinosa DO LAB - URINE CHEMISTRY ORDE RABEMMANUELLE Final Result [facility] [address] [place] [address], [facility] [phone] from Last 3 Months or Most Recently Relevant to Health Maintenance Insurance [facility] Advance Directives * Full Code (Latest Code Status on File) Date Activated Date Inactivated Comments 05/10/2023 6:53 PM 05/11/2023 6:52 PM
--- OUTSIDE RECORDS SUMMARY | 2024-11-26 18:27 | XMS_ITS | Encounter Summary ---
Author Organization [facility] Address [address] [place] [address] Care Team Providers Care Care Coordination Manager Name Role Phone Unavailable Primary Care Provider Unavailabl e Reason for Visit * Reason Onset Date Comments Medication Prior Auth Request 08/25/2018 Encounter Details Date Type Department Care Team (Late st Contact Info) Description 08/25/2018 Telephone [facility] Pediatrics - Diabetes Mgmt [address] [place] [address]. [place] [address] Radha Espinosa, [address] [address] Medication Prior Auth Request Social History Tobacco Use Types Packs/Day Years Used Date Smoking Tobacco: Passive Smo ke Exposure - Never Smoker Smokeless Tobacco: Never Alcohol Use Standard Drinks/Week Comments No 0 (1 standard drink = 0.6 oz pur e alcohol) Comments No Sex and Gender Information Value Date Recorded Sex Assigned at Not on file Legal Sex Female 5:44 AM EMERGENCY ROOM PHYSICIAN ASSISTANT Gender Identity Not on file Sexual Orientation Not on file documented as of this encounter Miscellaneous Notes * Telephone Encounter - Ludwin Curran RN - 08/29/2018 10:57 AM CDT I returned call to Tiffany, pharmacist at [facility] [phone], reports [facility] wants a more [...]
--- OUTSIDE RECORDS SUMMARY | 2024-11-26 18:27 | XMS_ITS | Encounter Summary ---
Author Organization [facility] Address [address] [place] [address] Care Team Providers Care Apprentice Funeral Director Name Role Phone Arron Lucio MD Primary Care Provider [phone]- [phone] Unknown, Provider Primary Care Provider Unavaila ble Unknown, Provider Primary Care Provider Unavaila ble Reason for Visit * Reason Onset Date Comments Refill Request 02/03/2011 Needs humalog vi als, lantus (just in case), test strips, lancets, glucagon , ketone strips. She said she needs refills on everything. [employer] [phone] Encounter Details Date Type Department Care Team (Late st Contact Info) Description 02/03/2011 Telephone [facility] Pediatrics - Endocrinology [address] [place] [address] Jaime Crespo, ENTRY LEVEL BUSINESS ANALYST-PLEATING MACHINE OPERATOR [address] [place] [id number] Refill Request (Needs humalog vials, lantus (just in case), test strips, lancets, glucagon , ketone strips. She said she needs refills on everything. [employer] [phone]) Social History Tobacco Use Types Packs/Day Years Used Date Smoking Tobacco: Passive Smo ke Exposure - Never Smoker Smokeless Tobacco: Never Alcohol Use Standard Drinks/Week Comments No 0 (1 standard drink = 0.6 oz pur e alcohol) Comments Unknown Sex and Gender Information Value Date Recorded Sex Assigned at Not on file Legal Sex Female 5:44 AM BUTTON SEWER Gender Identity Not on file Sexual Orientation Not on file documented as of this encounter Plan of Treatment Not on file documented as of this encounter Visit Diagnoses Not on filedocumented in this encounter Care Teams Apprentice Funeral Director Relationship Specialty Start Date End Date Arron Lucio MD [address] [place] [address] PCP - General 06/04/09 02/20/13 Unknown, Provider [address] [place] [address] PCP - General 02/21/13 06/26/13 Unknown, Provider [address] [place] [address] PCP - General 08/14/13 08/15/13 documented as of this encounter
--- OUTSIDE RECORDS SUMMARY | 2024-11-26 18:27 | XMS_ITS | Encounter Summary ---
Author Organization [facility] Address [address] [place] [address] Care Team Providers Care Handbook Writer Name Role Phone Arron Lucio MD Primary Care Provider [phone]- [phone] Unknown, Provider Primary Care Provider Unavaila ble Unknown, Provider Primary Care Provider Unavaila ble Reason for Visit * Reason Onset Date Comments MEDICATION REFILL 07/04/2012 Encounter Details Date Type Department Care Team (Late st Contact Info) Description 07/04/2012 Refill [facility] Pediatrics - Endocrinology [address] [place] [address] Jaime Crespo, GUM ROLLING MACHINE OPERATOR-RUFFLER [address] [place] [address] MEDICATION REFILL Social History Tobacco Use Types Packs/Day Years Used Date Smoking Tobacco: Passive Smo ke Exposure - Never Smoker Smokeless Tobacco: Never Alcohol Use Standard Drinks/Week Comments No 0 (1 standard drink = 0.6 oz pur e alcohol) Comments Unknown Sex and Gender Information Value Date Recorded Sex Assigned at Not on file Legal Sex Female 5:44 AM CARDIOPULMONARY TECHNOLOGIST CHIEF Gender Identity Not on file Sexual [...] uncontrolled documented in this encounter Care Teams Handbook Writer Relationship Specialty Start Date End Date Arron Lucio MD [address] [place] [address] PCP - General 06/04/09 02/20/13 Unknown, Provider [address] [place] [address] PCP - General 02/21/13 06/26/13 Unknown, Provider [address] [place] [address] PCP - General 08/14/13 08/15/13 documented as of this encounter
--- OUTSIDE RECORDS SUMMARY | 2024-11-26 18:27 | XMS_ITS | Clinical Summary ---
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 Subscriber:Self Name:Nish Machado Payer ID:[id number] (NAIC) Group ID:Not on file Type:MEDICAID RISK OTHER Address: [address] Advance Directives For more information, please contact: [phone] * Full Code (Latest Code Status on File) Date Activated Date Inactivated Comments 06/29/2022 12:03 PM 06/29/2022 7:40 PM * Full Code Date Activated Date Inactivated Comments 06/29/2022 12:03 PM 06/29/2022 12:03 PM Care Teams Quality Assurance Tech Relationship Specialty Start Date End Date Mo Vora MD [address] [address] PCP - General Family Practice 09/21/23
--- OUTSIDE RECORDS SUMMARY | 2024-11-26 18:27 | XMS_ITS | Encounter Summary ---
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 * Telephone Encounter - Anne Nails RN - 08/03/2021 11:26 AM CDT Chart notes faxed to Tiffany Burgos at [phone] * Telephone Encounter - Marco Urbina - [...]
--- OUTSIDE RECORDS SUMMARY | 2024-11-26 18:27 | XMS_ITS | Encounter Summary ---
Author Organization [facility] Address [address] [place] [address] [address] Team Prov[address] Care [address] Sprinkler Name Role Phone Arron Lucio MD Primary Care Provider [phone] Unknown, Provider Primary Care Provider Unavaila ble Unknown, Provider Primary Care Provider Unavaila ble Reason for Visit * Reason Onset Date Comments Refill Request 06/27/2009 ketostrips, free style lite test strips #200, teest 5- 9x qd Encounter Details Date Type Department Care Team (Late st Contact Info) Description 06/27/2009 Telephone [facility] Pediatrics - Diabetes [address] [address] Rosalba Penaloza MD Refill Request (ketostrips, freestyle lite test strips #200, teest 5-9x qd) Social History Tobacco Use Types Packs/Day Years Used Date Smoking Tobacco: Never Assessed Comments Unknown Sex and Gender Information Value Date Recorded Sex Assigned at Not on file 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
== END 2024-11-26 17:43 | disposition left against medical advice (07) ==
DX: R10.20 Pelvic and perineal pain unspecified side (principal)
CPT/HCPCS: 99199